=== PATIENT | male | born 1970 | race Caucasian/White ===

== ENCOUNTER 2018-06-27 03:28 | Emergency (ER) | payer OTHER ==
[2018-06-27] MEDS ORDERED: Sodium Chloride 0.9% 1000 ML 1,000 ML IV STA ×2 (03:54→04:38)
--- NOTE | 2018-06-27 04:03 | ERPHSYRPT ---
- History of Present Illness Time Seen by Provider: 06/27/18 03:58 Source: patient Exam Limitations: no limitations Patient Subjective Stated Complaint: pt states he has been dizzy all day, worse tonight. denies any pain. Triage Nursing Assessment: pt alert and oriented, answers questions approp. pt ambulatory with slow steady gait noted. respirations nonlabored with lungs cta. puplis equal and reactive. bilat upper and lower ext strength equal Physician History: 47-year-old white male with history of diabetes type 2, hypothyroidism, high blood pressure, arthritis, Patient arrives with complaint of feeling dizzy since yesterday he denies any fevers no nausea no vomiting no urinary symptoms he states his blood sugars have been running in the low 100s. Past medical history includes diabetes type 2, hypothyroidism, osteoarthritis. Past surgical history includes appendectomy, cholecystectomy, hernia repair, surgery on the left wrist. Timing/Duration: yesterday Severity: moderate Modifying Factors: Improves With: nothing Associated Symptoms: other (dizziness), No nausea, No vomiting, No abdominal pain, No shortness of breath, No heartburn, No diaphoresis, No cough, No chills , No chest pain, No fever, No headaches, No loss of appetite, No malaise, No rash, No syncope, No seizure, No weakness Allergies/Adverse Reactions: No Known Drug Allergies Allergy (Verified 06/27/18 03:47) Home Medications: Furosemide 40 mg [Lasix 40 MG] 40 mg PO DAILY 11/07/11 [History] Levothyroxine Sodium 112 Mcg [Synthroid 112 Mcg] 112 mcg PO DAILY 11/07/11 [History] Metformin HCl 1000 mg [Glucophage 1000 MG] 1,000 mg PO DAILY 11/07/11 [History] Glimepiride 4 mg PO DAILY 06/19/14 [History] Lisinopril [Zestril] 10 mg PO DAILY 06/19/14 [History] Potassium Chloride 10 Meq Tab* [Klor Con 10 MEQ] 10 meq PO DAILY 06/19/14 [ History] Pravastatin Sodium 20 mg PO HS 06/19/14 [History] Hx Tetanus, Diphtheria Vaccination/Date Given: Yes Hx Influenza Vaccination/Date Given: No Hx Pneumococcal Vaccination/Date Given: No Immunizations Up to Date: Yes - Review of Systems Constitutional: No Fever, No Chills Eyes: No Symptoms Ears, Nose, & Throat: No Symptoms Respiratory: No Cough, No Dyspnea Cardiac: No Chest Pain, No Edema, No Syncope Abdominal/Gastrointestinal: No Abdominal Pain, No Nausea, No Vomiting, No Diarrhea Genitourinary Symptoms: No Dysuria Musculoskeletal: No Back Pain, No Neck Pain Skin: No Rash Neurological: Dizziness, No Focal Weakness, No Gait Changes, No Headache, No Irritability, No Lethargy, No Paralysis, No Parasthesia, No Seizure, No Sensory Changes, No Speech Changes, No Tics, No Tremors, No Vertigo Psychological: No Symptoms Endocrine: No Symptoms All Other Systems: Reviewed and Negative - Past Medical History Pertinent Past Medical History: Yes Neurological History: No Pertinent History ENT History: No Pertinent History Cardiac History: Hypertension Respiratory History: No Pertinent History Endocrine Medical History: Diabetes Type II, Hypothyroidism Musculoskeletal History: Osteoarthritis GI Medical History: No Pertinent History History: No Pertinent History Psycho-Social History: No Pertinent History Male Reproductive Disorders: No Pertinent History - Past Surgical History Past Surgical History: Yes Neuro Surgical History: No Pertinent History Cardiac: No Pertinent History Respiratory: No Pertinent History Gastrointestinal: Appendectomy, Cholecystectomy, Hernia Repair Genitourinary: No Pertinent History Musculoskeletal: Orthopedic Surgery Male Surgical History: No Pertinent History Other Surgical History: L wrist - Social History Smoking Status: Current every day smoker How long have you smoked: 2yrs Exposure to second hand smoke: No Drug Use: none Patient Lives Alone: No - Nursing Vital Signs Nursing Vital Signs: Initial Vital Signs Pulse Rate 95 H 06/27/18 03:36 Respiratory Rate 18 06/27/18 03:36 Blood Pressure 149/90 06/27/18 03:36 O2 Sat by Pulse Oximetry 98 06/27/18 03:36 Pain Scale Pain Intensity 0 - Physical Exam General Appearance: no apparent distress, alert, obese Eye Exam: PERRL/EOMI, eyes nml inspection Ears, Nose, Throat Exam: normal ENT inspection, TMs normal, pharynx normal, moist mucous membranes Neck Exam: normal inspection, non-tender, supple, full range of motion Respiratory Exam: normal breath sounds, lungs clear, No respiratory distress Cardiovascular Exam: regular rate/rhythm, normal heart sounds, normal peripheral pulses, capillary refill <2 sec Gastrointestinal/Abdomen Exam: soft, normal bowel sounds, No tenderness, No mass Back Exam: normal inspection, normal range of motion, No CVA tenderness, No vertebral tenderness Extremity Exam: normal inspection, normal range of motion, pelvis stable Neurologic Exam: alert, oriented x 3, cooperative, lens finisher II-XII nml as tested, normal mood/affect, nml cerebellar function, nml station & gait, sensation nml, other (patient alert, oriented x3, cranial nerves II through XII intact,, normal finger to nose, no pronator drift, no facial droop, glass frame fitter equal 5 over 5 , speech normal, Ct Coma Scale 15, sensation intact all extremities,full range of motion all extremities.), No motor deficits, No sensory deficit, No disoriented, No confusion, No agitation, No uncooperative, No intoxicated appearance, No depressed mood/affect, No motor weakness, No facial droop, No slurred speech, No aphasia, No dysarthria, No abnormal gait, No abnormal cerebellar tests, No abnormal lens finisher II-XII, No EOM palsy Skin Exam: normal color, warm, dry, No rash SpO2 Interpretation: normal (98%) SpO2: 98 - Course Nursing assessment & vital signs reviewed: Yes EKG Interpreted by Me: RATE (95 bpm), Sinus Rhythm, NORMAL AXIS, Other (EKG: Sinus rhythm, 95 bpm, normal axis, no acute ST or T wave changes, normal EKG) - CT Exams Head CT Interpretation: Tele-radiologist Report (head CT: No acute intracranial findings) Ordered Tests: Active Orders 24 hr Category Date Time Status EKG-ER Only STAT Care 06/27/18 03:54 Active IV Insertion STAT Care 06/27/18 03:54 Active Orthostatic Vital Signs STAT Care 06/27/18 03:54 Active HEAD WITHOUT CONTRAST [CT] Stat Exams 06/27/18 03:54 Taken CBC W DIFF Stat Lab 06/27/18 04:20 Completed CMP Stat Lab 06/27/18 04:20 Completed UA W/RFX UR CULTURE Stat Lab 06/27/18 04:50 Completed Medication Summary Generic Name Dose Route Start Last Admin Trade Name Freq PRN Reason Stop Dose Admin Sodium Chloride 1,000 mls @ 999 mls/hr 06/27/18 04:38 Sodium Chloride 0.9% 1000 Ml IV 06/27/18 05:38 .Q1H1M STA Meclizine HCl 25 mg 06/27/18 05:17 Antivert 25 Mg PO 06/27/18 05:18 STAT ONE Discontinued Medications Generic Name Dose Route Start Last Admin Trade Name Niesha PRN Reason Stop Dose Admin Sodium Chloride 1,000 mls @ 999 mls/hr 06/27/18 03:54 06/27/18 04:36 Sodium Chloride 0.9% 1000 Ml IV 06/27/18 04:54 999 mls/hr .Q1H1M STA Administration Sodium Chloride Confirm 06/27/18 04:34 Sodium Chloride 0.9% 1000 Ml Administered 06/27/18 04:35 Dose 1,000 mls @ ud .ROUTE .STK-MED ONE Lab/Rad Data: Laboratory Result Diagrams 06/27/18 04:20 06/27/18 04:20 Laboratory Results 06/27/18 06/27/18 06/27/18 Range/Units 04:50 04:20 04:20 WBC 9.7 (4.0-10.5) K/mm3 RBC 5.10 (4.1-5.6) M/mm3 Hgb 14.2 (12.5-18.0) gm/dl Hct 43.9 (42-50) % MCV 86.1 (78-100) fl MCH 27.8 (26-32) pg MCHC 32.3 (32-36) g/dl RDW 14.9 H (11.5-14.0) % Plt Count 206 (150-450) K/mm3 MPV 10.4 H (6-9.5) fl Gran % 68.6 H (36.0-66.0) % Eos # (Auto) 0.18 (0-0.5) Absolute Lymphs (auto) 2.32 (1.0-4.6) Absolute Monos (auto) 0.50 (0.0-1.3) Lymphocytes % 24.0 (24.0-44.0) % Monocytes % 5.2 (0.0-12.0) % Eosinophils % 1.9 (0.00-5.0) % Basophils % 0.3 (0.0-0.4) % Absolute Granulocytes 6.64 (1.4-6.9) Basophils # 0.03 (0-0.4) Sodium 137 (137-145) mmol/L Potassium 4.1 (3.5-5.1) mmol/L Chloride 101 (98-107) mmol/L Carbon Dioxide 27 (22-30) mmol/L Anion Gap 12.6 (5-15) MEQ/L BUN 14 (9-20) mg/dL Creatinine 1.03 (0.66-1.25) mg/dL Estimated GFR > 60.0 ML/MIN Glucose 224 H (74-106) mg/dL Calcium 9.3 (8.4-10.2) mg/dL Total Bilirubin 0.30 (0.2-1.3) mg/dL AST 21 (17-59) U/L ALT 27 (0-50) U/L Alkaline Phosphatase 82 (38-126) U/L Serum Total Protein 7.3 (6.3-8.2) g/dL Albumin 3.9 (3.5-5.0) g/dL Urine Color STRAW (YELLOW) Urine Appearance CLEAR (CLEAR) Urine pH 6.0 (5-6) Ur Specific [place] 1.005 (1.005-1.025) Urine Protein NEGATIVE (Negative) Urine Ketones NEGATIVE (NEGATIVE) Urine Blood NEGATIVE (0-5) Brando/ul Urine Nitrite NEGATIVE (NEGATIVE) Urine Bilirubin NEGATIVE (NEGATIVE) Urine Urobilinogen NEGATIVE (0-1) mg/dL Ur Leukocyte Esterase NEGATIVE (NEGATIVE) Urine WBC (Auto) NONE (0-5) /HPF Urine RBC (Auto) NONE (0-2) /HPF U Epithel Cells (Auto) NONE (FEW) /HPF Urine Bacteria (Auto) NONE (NEGATIVE) /HPF Urine Mucus (Auto) SLIGHT (NEGATIVE) /HPF Urine Culture Reflexed NO (NO) Urine Glucose NEGATIVE (NEGATIVE) mg/dL - Progress Progress: improved Progress Note: 06/27/18 05:17 47-year-old white male with history of diabetes, hypothyroidism, arthritis, high blood pressure, Patient arrives with complaint of dizziness with moving around especially turning his head symptoms since yesterday, Patient with normal neurologic examination head CT is normal, Chemistry essentially normal with the exception of elevated glucose, patient is given 2 L of normal saline Will give patient Antivert 25 mg orally sent home with Antivert 25 mg orally 3 times a day as needed, Patient to follow-up with Dr. Perkins he is return for acute distress or for severe symptoms, , - Departure Time of Disposition: 05:18 Departure Disposition: Home Clinical Impression: Dizziness, Vertigo Condition: Fair Critical Care Time: No Referrals: SIENNA PERKINS MD [Primary Care Provider] - Instructions: Vertigo (a Type of Dizziness) (DC) Additional Instructions: Return home. Plenty of fluids. Antivert 25 mg orally 3 times a day as needed for dizziness #15. Follow-up with Dr. Perkins. Return for acute distress or for severe symptoms. Prescriptions: Meclizine HCl 25 mg [Antivert 25 mg] 25 mg PO TID PRN #15 tablet
[2018-06-27] MEDS ORDERED: Sodium Chloride 0.9% 1000 ML 1,000 ML ONE ×2 (04:34→05:28)
[2018-06-27 04:38] LABS: BASOPHIL % 0.3 % (0.0-0.4); Basophil (Absolute #) 0.03 (0-0.4); Eosinophil % 1.9 % (0.00-5.0); Eosinophil (Absolute #) 0.18 (0-0.5); Granulocyte Absolute (ANC) 6.64 (1.4-6.9); Granulocytes % 68.6 % (36.0-66.0); Hematocrit 43.9 % (42-50); Hemoglobin 14.2 gm/dl (12.5-18.0); Lymphocyte (Absolute #) 2.32 (1.0-4.6); Mean Cell Volume 86.1 fl (78-100); Mean Corpuscular Hemoglobin 27.8 pg (26-32); Mean Corpuscular Hgb Concent. 32.3 g/dl (32-36); Mean Platelet Volume 10.4 fl (6-9.5); Monocytes % 5.2 % (0.0-12.0); Platelet Count 206 K/mm3 (150-450); Red Cell Distribution Width 14.9 % (11.5-14.0); White Blood Count 9.7 K/mm3 (4.0-10.5)
[2018-06-27 04:49] LABS: ALBUMIN 3.9 g/dL (3.5-5.0); ALKALINE PHOSPHATASE 82 U/L (38-126); ANION GAP 12.6 MEQ/L (5-15); BLOOD UREA NITROGEN 14 mg/dL (9-20); CHLORIDE 101 mmol/L (98-107); Calcium 9.3 mg/dL (8.4-10.2); Carbon Dioxide 27 mmol/L (22-30); Creatinine 1 1.03 mg/dL (0.66-1.25); Glucose 224 mg/dL (74-106); Potassium 4.1 mmol/L (3.5-5.1); SGOT/AST 21 U/L (17-59); SGPT/ALT 27 U/L (0-50); SODIUM 137 mmol/L (137-145); Total Protein 7.3 g/dL (6.3-8.2)
[2018-06-27 05:01] LABS: Appearance CLEAR (CLEAR); Bilirubin NEGATIVE (NEGATIVE); Blood NEGATIVE Ery/ul (0-5); Glucose NEGATIVE (NEGATIVE); Ketones NEGATIVE (NEGATIVE); Leukocyte Esterase NEGATIVE (NEGATIVE); Mucus SLIGHT /HPF (NEGATIVE); Nitrite NEGATIVE (NEGATIVE); Protein,Urine Dip NEGATIVE (Negative); Specific Gravity 1.005 (1.005-1.025); Urobilinogen NEGATIVE mg/dL (0-1)
[2018-06-27] MEDS ORDERED: ANTIVERT 25 MG PO ONE (05:17)
[2018-06-27] MEDS ORDERED: ANTIVERT 25 MG ONE (05:28)
[2018-06-27 06:23] VITALS: BP 126/59; PULSE 80; O2SAT 97
--- NOTE | 2018-06-27 09:07 | XRAY ---
Indication: Dizziness. Multiple contiguous axial images obtained through the head without contrast. Comparison: None Normal appearing brain parenchyma, ventricles, and bony calvarium. Visualized paranasal sinuses and mastoid air cells are clear. Impression: Normal CT head without contrast exam. Comment: Preliminary interpretation was made by [facility]. No discrepancy. CT DI 68.65
== END 2018-06-27 06:23 | disposition home or self-care (01) ==
LOC: ED 03:28
DX: R42 Dizziness and giddiness (principal); E11.9 Type 2 diabetes mellitus without complications; E03.9 Hypothyroidism, unspecified; Z79.4 Long term (current) use of insulin; M19.90 Unspecified osteoarthritis, unspecified site
CPT/HCPCS: 36000; 36415; 70450; 80053; 81001; 85025; 93005; 96360; 96361; 99284; A9270-GY

== ENCOUNTER 2018-08-14 20:55 | Inpatient (IN) | payer OTHER ==
[2018-08-14] MEDS ORDERED: Sodium Chloride 0.9% 1000 ML 1,000 ML IV STA (21:30)
[2018-08-14] MEDS ORDERED: Zosyn 3.375GM/100 Ml D5W 3.375 GM/100 ML IVPB IV STA (21:30)
[2018-08-14] MEDS ORDERED: TYLENOL 325 MG PO STA (21:30)
[2018-08-14 22:03] LABS: BASOPHIL % 0.2 % (0.0-0.4); Basophil (Absolute #) 0.04 (0-0.4); Eosinophil % 0.2 % (0.00-5.0); Eosinophil (Absolute #) 0.04 (0-0.5); Granulocyte Absolute (ANC) 15.87 (1.4-6.9); Granulocytes % 83.2 % (36.0-66.0); Hemoglobin 13.7 gm/dl (12.5-18.0); Lymphocyte (Absolute #) 1.97 (1.0-4.6); Lymphocytes % 10.3 % (24.0-44.0); Mean Cell Volume 83.7 fl (78-100); Mean Corpuscular Hgb Concent. 33.4 g/dl (32-36); Mean Platelet Volume 10.4 fl (6-9.5); Monocyte (Absolute #) 1.17 (0.0-1.3); Monocytes % 6.1 % (0.0-12.0); Platelet Count 216 K/mm3 (150-450); White Blood Count 19.1 K/mm3 (4.0-10.5)
[2018-08-14 22:17] LABS: ALBUMIN 3.7 g/dL (3.5-5.0); ALKALINE PHOSPHATASE 96 U/L (38-126); ANION GAP 14.4 MEQ/L (5-15); BLOOD UREA NITROGEN 13 mg/dL (9-20); CHLORIDE 98 mmol/L (98-107); Carbon Dioxide 24 mmol/L (22-30); Creatinine 1 1.23 mg/dL (0.66-1.25); Glucose 192 mg/dL (74-106); Potassium 3.9 mmol/L (3.5-5.1); SGOT/AST 23 U/L (17-59); SGPT/ALT 28 U/L (0-50); SODIUM 132 mmol/L (137-145); Total Protein 7.3 g/dL (6.3-8.2)
[2018-08-14] MEDS ORDERED: Zosyn 3.375GM/100 Ml D5W 3.375 GM/100 ML IVPB IV ONE (22:19)
[2018-08-14] MEDS ORDERED: Sodium Chloride 0.9% 1000 ML 1,000 ML ONE (22:19)
[2018-08-14] MEDS ORDERED: TYLENOL 325 MG ONE (22:19)
[2018-08-14 22:34] LABS: Lactic Acid 2.4 (0.4-2.0)
[2018-08-14 23:02] LABS: Appearance CLEAR (CLEAR); Bilirubin NEGATIVE (NEGATIVE); Blood SMALL Ery/ul (0-5); Glucose NEGATIVE (NEGATIVE); Ketones TRACE (NEGATIVE); Leukocyte Esterase TRACE (NEGATIVE); Mucus SLIGHT /HPF (NEGATIVE); Nitrite NEGATIVE (NEGATIVE); Protein,Urine Dip NEGATIVE (Negative); Urobilinogen NEGATIVE mg/dL (0-1)
[2018-08-14] MEDS: Vancomycin 1GM/ Ns 250ML*** 250 ML IV SCH (23:04)
--- NOTE | 2018-08-14 23:36 | ERPHSYRPT ---
- History of Present Illness Source: patient Exam Limitations: no limitations Patient Subjective Stated Complaint: Pt states that she came to ER due to Pain and swelling in his groin fever and having chills. Pt states that last night that he felt that the swelling in his groin started to drain last night pt states that the drainage was bloody with some blood clots, pt states that he took some motrin to help with his discomfort @ 0600 this morning. Swelling noted in pts groin area drainage noted on pts right lower testical area, Pt has a Oral temp 101.8 Triage Nursing Assessment: Pt states that she came to ER due to Pain and swelling in his groin fever and having chills. Pt states that last night that he felt that the swelling in his groin started to drain last night pt states that the drainage was bloody with some blood clots, pt states that he took some motrin to help with his discomfort @ 0600 this morning. Swelling noted in pts groin area drainage noted on pts right lower testical area, Pt has a Oral temp 101.8 Physician History: Pt is a 47 y/o male with h/o DM II, that presented to the ED, as he had some erythema and wound in the posterior scrotal area. Today the area started oozing and the pain was severe, so he decided to come to the ER. Pt states, had F/C/S. He did not see his PCP, secondary to the area, where the wound is located, and not feeling comfortable about it. Pt denies dysuria, frequency or urgency. No SOB or cough. No N/V/D or abdominal pain. Timing/Duration: week(s) Activites at Onset: none Quality: burning, throbbing Onset Location: groin, scrotal Pain Radiation: none Severity of Pain-Max: moderate Severity of Pain-Current: moderate Modifying Factors: Improves With: analgesics Associated Symptoms: fever, chills, other (drainage from the wound) Prior abdominal problems: none Allergies/Adverse Reactions: No Known Drug Allergies Allergy (Verified 08/14/18 22:15) Home Medications: Furosemide 40 mg [Lasix 40 MG] 40 mg PO DAILY 11/07/11 [History] Levothyroxine Sodium 112 Mcg [Synthroid 112 Mcg] 112 mcg PO DAILY 11/07/11 [History] Metformin HCl 1000 mg [Glucophage 1000 MG] 1,000 mg PO DAILY 11/07/11 [History] Glimepiride 4 mg PO DAILY 06/19/14 [History] Lisinopril [Zestril] 10 mg PO DAILY 06/19/14 [History] Potassium Chloride 10 Meq Tab* [Klor Con 10 MEQ] 10 meq PO DAILY 06/19/14 [ History] Pravastatin Sodium 20 mg PO HS 06/19/14 [History] Empagliflozin [Jardiance] 10 mg PO DAILY 08/14/18 [History] Hx Tetanus, Diphtheria Vaccination/Date Given: Yes Hx Influenza Vaccination/Date Given: No Hx Pneumococcal Vaccination/Date Given: No - Past Medical History Pertinent Past Medical History: Yes Neurological History: No Pertinent History ENT History: No Pertinent History Cardiac History: Hypertension Respiratory History: No Pertinent History Endocrine Medical History: Diabetes Type II, Hypothyroidism Musculoskeletal History: Osteoarthritis GI Medical History: No Pertinent History History: No Pertinent History Psycho-Social History: No Pertinent History Male Reproductive Disorders: No Pertinent History - Past Surgical History Past Surgical History: Yes Neuro Surgical History: No Pertinent History Cardiac: No Pertinent History Respiratory: No Pertinent History Gastrointestinal: Appendectomy, Cholecystectomy, Hernia Repair Genitourinary: No Pertinent History Musculoskeletal: Orthopedic Surgery Male Surgical History: No Pertinent History Other Surgical History: L wrist - Social History Smoking Status: Current every day smoker How long have you smoked: 2yrs Exposure to second hand smoke: No Drug Use: none Patient Lives Alone: No - Review of Systems Constitutional: Fever, Chills Eyes: No Symptoms Ears, Nose, & Throat: No Symptoms Respiratory: No Cough, No Dyspnea Cardiac: No Chest Pain, No Edema, No Syncope Abdominal/Gastrointestinal: No Abdominal Pain, No Nausea, No Vomiting, No Diarrhea Genitourinary Symptoms: Other (skin wound in the R scrotal area, near the thigh , posteriorly), No Dysuria Musculoskeletal: No Back Pain, No Neck Pain Neurological: No Dizziness, No Focal Weakness, No Sensory Changes - Nursing Vital Signs Nursing Vital Signs: Initial Vital Signs Temperature 101.8 F 08/14/18 21:12 Respiratory Rate 18 08/14/18 21:12 Blood Pressure 115/76 08/14/18 21:12 O2 Sat by Pulse Oximetry 98 08/14/18 21:12 Pain Scale Pain Intensity 10 - Physical Exam General Appearance: moderate distress (secondary to pain) Eye Exam: PERRL/EOMI Ears, Nose, Throat Exam: pharynx normal, moist mucous membranes Neck Exam: normal inspection, supple Respiratory Exam: normal breath sounds, lungs clear Cardiovascular Exam: tachycardia, No edema Gastrointestinal/Abdomen Exam: soft, No tenderness Male Genital Exam: normal genitalia, erythema, scrotum tenderness (R), scrotal swellling (and draining from wound), uncircumcised Extremity Exam: normal inspection, normal range of motion, No pedal edema Neurologic Exam: alert, oriented x 3, cooperative, sensation nml, No motor deficits Skin Exam: normal color, warm, dry, No rash SpO2: 97 - Course Nursing assessment & vital signs reviewed: Yes Ordered Tests: Active Orders 24 hr Category Date Time Status IV Insertion STAT Care 08/14/18 21:30 Active BLOOD CULTURE Stat Lab 08/14/18 22:47 Received CBC W DIFF Stat Lab 08/14/18 21:30 Completed CMP Stat Lab 08/14/18 21:30 Completed Lactic Acid Stat Lab 08/14/18 21:58 Results Urinalysis with Microscopy Stat Lab 08/14/18 22:51 Completed Medication Summary Generic Name Dose Route Start Last Admin Trade Name Freq PRN Reason Stop Dose Admin Vancomycin HCl 250 mls @ 250 mls/hr 08/14/18 21:30 08/14/18 23:04 Vancomycin 1gm/ Ns 250ml IV 08/14/18 23:29 250 mls/hr Q1H ALONDRA Administration Discontinued Medications Generic Name Dose Route Start Last Admin Trade Name Freq PRN Reason Stop Dose Admin Acetaminophen 975 mg 08/14/18 21:30 08/14/18 22:35 Tylenol 325 Mg PO 08/14/18 21:31 975 mg STAT STA Administration Acetaminophen Confirm 08/14/18 22:19 Tylenol 325 Mg Administered 08/14/18 22:20 Dose 975 mg .ROUTE .STK-MED ONE Sodium Chloride 1,000 mls @ 999 mls/hr 08/14/18 21:30 08/14/18 22:26 Sodium Chloride 0.9% 1000 Ml IV 08/14/18 22:30 999 mls/hr .Q1H1M STA Administration Piperacillin Sod/Tazobactam Sod 3.375 gm in 100 mls @ 200 mls/hr 08/14/18 21: 30 08/14/18 22:25 Zosyn 3.375gm/100 Ml D5w IV 08/14/18 21:59 200 mls/hr STAT STA Administration Sodium Chloride Confirm 08/14/18 22:19 Sodium Chloride 0.9% 1000 Ml Administered 08/14/18 22:20 Dose 1,000 mls @ ud .ROUTE .STK-MED ONE Piperacillin Sod/Tazobactam Sod Confirm 08/14/18 22:19 Zosyn 3.375gm/100 Ml D5w Administered 08/14/18 22:20 Dose 3.375 gm in 100 mls @ ud IV .STK-MED ONE Lab/Rad Data: Laboratory Result Diagrams 08/14/18 21:30 08/14/18 21:30 Laboratory Results 08/14/18 08/14/18 08/14/18 Range/Units 22:51 21:58 21:30 WBC (4.0-10.5) K/mm3 RBC (4.1-5.6) M/mm3 Hgb (12.5-18.0) gm/dl Hct (42-50) % MCV (78-100) fl MCH (26-32) pg MCHC (32-36) g/dl RDW (11.5-14.0) % Plt Count (150-450) K/mm3 MPV (6-9.5) fl Gran % (36.0-66.0) % Eos # (Auto) (0-0.5) Absolute Lymphs (auto) (1.0-4.6) Absolute Monos (auto) (0.0-1.3) Lymphocytes % (24.0-44.0) % Monocytes % (0.0-12.0) % Eosinophils % (0.00-5.0) % Basophils % (0.0-0.4) % Absolute Granulocytes (1.4-6.9) Basophils # (0-0.4) Sodium 132 L (137-145) mmol/L Potassium 3.9 (3.5-5.1) mmol/L Chloride 98 (98-107) mmol/L Carbon Dioxide 24 (22-30) mmol/L Anion Gap 14.4 (5-15) MEQ/L BUN 13 (9-20) mg/dL Creatinine 1.23 (0.66-1.25) mg/dL Estimated GFR > 60.0 ML/MIN Glucose 192 H (74-106) mg/dL Lactic Acid 2.4 H (0.4-2.0) Calcium 9.0 (8.4-10.2) mg/dL Total Bilirubin 1.30 (0.2-1.3) mg/dL AST 23 (17-59) U/L ALT 28 (0-50) U/L Alkaline Phosphatase 96 (38-126) U/L Serum Total Protein 7.3 (6.3-8.2) g/dL Albumin 3.7 (3.5-5.0) g/dL Urine Color YELLOW (YELLOW) Urine Appearance CLEAR (CLEAR) Urine pH 6.0 (5-6) Ur Specific [place] 1.010 (1.005-1.025) Urine Protein NEGATIVE (Negative) Urine Ketones TRACE (NEGATIVE) Urine Blood SMALL (0-5) Brando/ul Urine Nitrite NEGATIVE (NEGATIVE) Urine Bilirubin NEGATIVE (NEGATIVE) Urine Urobilinogen NEGATIVE (0-1) mg/dL Ur Leukocyte Esterase TRACE (NEGATIVE) Urine WBC (Auto) 6-10 (0-5) /HPF Urine RBC (Auto) NONE (0-2) /HPF U Epithel Cells (Auto) NONE (FEW) /HPF Urine Bacteria (Auto) NONE (NEGATIVE) /HPF Urine Mucus (Auto) SLIGHT (NEGATIVE) /HPF Urine Glucose NEGATIVE (NEGATIVE) mg/dL 08/14/18 Range/Units 21:30 WBC 19.1 H (4.0-10.5) K/mm3 RBC 4.90 (4.1-5.6) M/mm3 Hgb 13.7 (12.5-18.0) gm/dl Hct 41.0 L (42-50) % MCV 83.7 (78-100) fl MCH 28.0 (26-32) pg MCHC 33.4 (32-36) g/dl RDW 14.0 (11.5-14.0) % Plt Count 216 (150-450) K/mm3 MPV 10.4 H (6-9.5) fl Gran % 83.2 H (36.0-66.0) % Eos # (Auto) 0.04 (0-0.5) Absolute Lymphs (auto) 1.97 (1.0-4.6) Absolute Monos (auto) 1.17 (0.0-1.3) Lymphocytes % 10.3 L (24.0-44.0) % Monocytes % 6.1 (0.0-12.0) % Eosinophils % 0.2 (0.00-5.0) % Basophils % 0.2 (0.0-0.4) % Absolute Granulocytes 15.87 H (1.4-6.9) Basophils # 0.04 (0-0.4) Sodium (137-145) mmol/L Potassium (3.5-5.1) mmol/L Chloride (98-107) mmol/L Carbon Dioxide (22-30) mmol/L Anion Gap (5-15) MEQ/L BUN (9-20) mg/dL Creatinine (0.66-1.25) mg/dL Estimated GFR ML/MIN Glucose (74-106) mg/dL Lactic Acid (0.4-2.0) Calcium (8.4-10.2) mg/dL Total Bilirubin (0.2-1.3) mg/dL AST (17-59) U/L ALT (0-50) U/L Alkaline Phosphatase (38-126) U/L Serum Total Protein (6.3-8.2) g/dL Albumin (3.5-5.0) g/dL Urine Color (YELLOW) Urine Appearance (CLEAR) Urine pH (5-6) Ur Specific [place] (1.005-1.025) Urine Protein (Negative) Urine Ketones (NEGATIVE) Urine Blood (0-5) Brando/ul Urine Nitrite (NEGATIVE) Urine Bilirubin (NEGATIVE) Urine Urobilinogen (0-1) mg/dL Ur Leukocyte Esterase (NEGATIVE) Urine WBC (Auto) (0-5) /HPF Urine RBC (Auto) (0-2) /HPF U Epithel Cells (Auto) (FEW) /HPF Urine Bacteria (Auto) (NEGATIVE) /HPF Urine Mucus (Auto) (NEGATIVE) /HPF Urine Glucose (NEGATIVE) mg/dL - Progress Progress: unchanged Progress Note: Pt is a 47 y/o male with wound that is draining from posterior scrotum on the R. The area is erythematous, painful and draining. Pt had the wound about two weeks, and did not seek any medical therapy prior to today. Pt will have blood cultures and wound culture taken. Will start Vancomycin and ZZosyn IV. Labs are going to be taken. Pt might need exploratory I&D in the OR. 08/14/18 23:38 08/15/18 00:16 Pt had labs done, and had WBC at over 19. His lactate is 2.4, and he has some RUCHI. Pt had IVF and ABX. Dr Perkins accepted for admission Discussed with .: Harrison Will see patient in: hospital (full admit) Counseled pt/family regarding: lab results, diagnosis - Departure Time of Disposition: 00:16 Departure Disposition: In-patient Admission Clinical Impression: Open wound of scrotum Condition: Fair Critical Care Time: No Referrals: SIENNA PERKINS MD [Primary Care Provider] -
[2018-08-15] MEDS ORDERED: TYLENOL 325 MG PO PRN (00:20)
[2018-08-15] MEDS ORDERED: Zofran 4 MG/2 ML VIAL IV PRN (00:20)
[2018-08-15] MEDS ORDERED: Sodium Chloride 0.9% 1000 ML 1,000 ML IV SCH (00:30)
[2018-08-15] MEDS: Vancomycin 1GM/ Ns 250ML*** 250 ML IV SCH (00:39)
[2018-08-15 05:46] LABS: BASOPHIL % 0.2 % (0.0-0.4); Basophil (Absolute #) 0.03 (0-0.4); Eosinophil % 0.4 % (0.00-5.0); Eosinophil (Absolute #) 0.06 (0-0.5); Granulocytes % 85.2 % (36.0-66.0); Hematocrit 38.7 % (42-50); Hemoglobin 12.7 gm/dl (12.5-18.0); Lymphocyte (Absolute #) 1.31 (1.0-4.6); Mean Cell Volume 84.7 fl (78-100); Mean Corpuscular Hemoglobin 27.8 pg (26-32); Mean Corpuscular Hgb Concent. 32.8 g/dl (32-36); Mean Platelet Volume 10.4 fl (6-9.5); Monocyte (Absolute #) 0.75 (0.0-1.3); Monocytes % 5.2 % (0.0-12.0); Platelet Count 196 K/mm3 (150-450); Red Blood Count 4.57 M/mm3 (4.1-5.6); White Blood Count 14.6 K/mm3 (4.0-10.5)
[2018-08-15] MEDS: Zosyn 3.375GM/100 Ml D5W 3.375 GM/100 ML IVPB IV SCH ×3 (06:02→17:09)
[2018-08-15 06:09] LABS: ALKALINE PHOSPHATASE 81 U/L (38-126); ANION GAP 11.9 MEQ/L (5-15); BLOOD UREA NITROGEN 12 mg/dL (9-20); CHLORIDE 102 mmol/L (98-107); Calcium 8.4 mg/dL (8.4-10.2); Carbon Dioxide 25 mmol/L (22-30); Creatinine 1 1.02 mg/dL (0.66-1.25); Glucose 191 mg/dL (74-106); Potassium 3.9 mmol/L (3.5-5.1); SGOT/AST 20 U/L (17-59); SGPT/ALT 22 U/L (0-50); SODIUM 134 mmol/L (137-145); Total Protein 5.9 g/dL (6.3-8.2)
--- NOTE | 2018-08-15 08:13 | PCM.HP ---
History of Present Illness - Chief Complaint Chief Complaint: scrotal abscess History of Present Illness: Mr.TOMLIN ANDINO is a 47 year old male who is morbidly obese and a type 2 diabetic. He developed some pain and swelling in the testicular region 4 days ago, progressed and worsened and has become more painful since then so he came to the ER for evaluation. He denies fever but has had some chills, the area is draining a large amount at this time. - Review of Systems Constitutional: Chills Respiratory: No Cough, No Short Of Breath Cardiac: No Chest Pain, No Edema, No Syncope Abdominal/Gastrointestinal: No Abdominal Pain, No Nausea, No Vomiting, No Diarrhea Skin: Cellulitis All Other Systems: Reviewed and Negative Medications & Allergies Home Medications: Home Medication List Furosemide 40 mg [Lasix 40 MG] 40 mg PO DAILY 11/07/11 [History Confirmed 08/14/18] Levothyroxine Sodium 112 Mcg [Synthroid 112 Mcg] 112 mcg PO DAILY 11/07/11 [History Confirmed 08/14/18] Metformin HCl 1000 mg [Glucophage 1000 MG] 1,000 mg PO DAILY 11/07/11 [History Confirmed 08/14/18] Glimepiride 4 mg PO DAILY 06/19/14 [History Confirmed 08/14/18] Lisinopril [Zestril] 10 mg PO DAILY 06/19/14 [History Confirmed 08/14/18] Potassium Chloride 10 Meq Tab* [Klor Con 10 MEQ] 10 meq PO DAILY 06/19/14 [ History Confirmed 08/14/18] Pravastatin Sodium 20 mg PO HS 06/19/14 [History Confirmed 08/14/18] Empagliflozin [Jardiance] 10 mg PO DAILY 08/14/18 [History Confirmed 08/14/18] Allergies/Adverse Reactions: Allergies Allergy/AdvReac Type Severity Reaction Status Date / Time No Known Drug Allergies Allergy Verified 08/14/18 22:15 - Past Medical History Past Medical History: Yes Neurological History: No Pertinent History ENT History: No Pertinent History Cardiac History: Hypertension Respiratory History: No Pertinent History Endocrine Medical History: Diabetes Type II, Hypothyroidism Musculoskelatal History: Osteoarthritis GI Medical History: No Pertinent History History: No Pertinent History Pyscho-Social History: No Pertinent History Male Reproductive Disorders: No Pertinent History - Past Surgical History Past Surgical History: Yes Neuro Surgical History: No Pertinent History Cardiac History: No Pertinent History Respiratory Surgery: No Pertinent History GI Surgical History: Appendectomy, Cholecystectomy, Hernia Repair Genitourinary Surgical Hx: No Pertinent History Musculskeletal Surgical Hx: Orthopedic Surgery Male Surgical History: No Pertinent History Other Surgical History: L wrist - Social History Smoking Status: Current every day smoker How long have you smoked: 5 Exposure to second hand smoke: Yes Alcohol: None Drug Use: none - Physical Exam Vital Signs: Vital Signs - 24 hr Temp Pulse Resp BP Pulse Ox 08/15/18 06:21 99.1 F 08/15/18 04:00 100.1 F 08/15/18 03:57 100.3 F 08/15/18 01:22 99.9 F 103 H 18 117/67 97 08/15/18 00:56 99.1 F 102 H 16 92/68 97 08/15/18 00:19 97 08/15/18 00:18 94 H 18 91/70 96 08/14/18 22:53 106 H 20 106/77 97 08/14/18 22:40 106 H 20 106/77 97 08/14/18 21:50 107 H 20 128/75 98 08/14/18 21:12 101.8 F 18 115/76 98 General Appearance: obese Neurologic Exam: alert, oriented x 3 Respiratory Exam: normal breath sounds, lungs clear, No respiratory distress Cardiovascular Exam: regular rate/rhythm, normal heart sounds, normal peripheral pulses Gastrointestinal/Abdomen Exam: soft, normal bowel sounds, No tenderness, No mass Male Genitalia Exam: other (large area of induration, erythema and purulent drainage. significant scrotal edema) Results - Labs Lab/Micro Results: Lab Results-Last 24 Hours 08/14/18 08/14/18 08/14/18 Range/Units 21:30 21:30 21:58 WBC 19.1 H (4.0-10.5) K/mm3 RBC 4.90 (4.1-5.6) M/mm3 Hgb 13.7 (12.5-18.0) gm/dl Hct 41.0 L (42-50) % MCV 83.7 (78-100) fl MCH 28.0 (26-32) pg MCHC 33.4 (32-36) g/dl RDW 14.0 (11.5-14.0) % Plt Count 216 (150-450) K/mm3 MPV 10.4 H (6-9.5) fl Gran % 83.2 H (36.0-66.0) % Eos # (Auto) 0.04 (0-0.5) Absolute Lymphs (auto) 1.97 (1.0-4.6) Absolute Monos (auto) 1.17 (0.0-1.3) Lymphocytes % 10.3 L (24.0-44.0) % Monocytes % 6.1 (0.0-12.0) % Eosinophils % 0.2 (0.00-5.0) % Basophils % 0.2 (0.0-0.4) % Absolute Granulocytes 15.87 H (1.4-6.9) Basophils # 0.04 (0-0.4) Sodium 132 L (137-145) mmol/L Potassium 3.9 (3.5-5.1) mmol/L Chloride 98 (98-107) mmol/L Carbon Dioxide 24 (22-30) mmol/L Anion Gap 14.4 (5-15) MEQ/L BUN 13 (9-20) mg/dL Creatinine 1.23 (0.66-1.25) mg/dL Estimated GFR > 60.0 ML/MIN Glucose 192 H (74-106) mg/dL Lactic Acid 2.4 H (0.4-2.0) Calcium 9.0 (8.4-10.2) mg/dL Total Bilirubin 1.30 (0.2-1.3) mg/dL AST 23 (17-59) U/L ALT 28 (0-50) U/L Alkaline Phosphatase 96 (38-126) U/L Serum Total Protein 7.3 (6.3-8.2) g/dL Albumin 3.7 (3.5-5.0) g/dL Prealbumin (17.6-36.0) mg/dL Urine Color (YELLOW) Urine Appearance (CLEAR) Urine pH (5-6) Ur Specific Grundy (1.005-1.025) Urine Protein (Negative) Urine Ketones (NEGATIVE) Urine Blood (0-5) Brando/ul Urine Nitrite (NEGATIVE) Urine Bilirubin (NEGATIVE) Urine Urobilinogen (0-1) mg/dL Ur Leukocyte Esterase (NEGATIVE) Urine WBC (Auto) (0-5) /HPF Urine RBC (Auto) (0-2) /HPF U Epithel Cells (Auto) (FEW) /HPF Urine Bacteria (Auto) (NEGATIVE) /HPF Urine Mucus (Auto) (NEGATIVE) /HPF Urine Glucose (NEGATIVE) mg/dL 08/14/18 08/15/18 08/15/18 Range/Units 22:51 01:20 05:25 WBC 14.6 H (4.0-10.5) K/mm3 RBC 4.57 (4.1-5.6) M/mm3 Hgb 12.7 (12.5-18.0) gm/dl Hct 38.7 L (42-50) % MCV 84.7 (78-100) fl MCH 27.8 (26-32) pg MCHC 32.8 (32-36) g/dl RDW 14.0 (11.5-14.0) % Plt Count 196 (150-450) K/mm3 MPV 10.4 H (6-9.5) fl Gran % 85.2 H (36.0-66.0) % Eos # (Auto) 0.06 (0-0.5) Absolute Lymphs (auto) 1.31 (1.0-4.6) Absolute Monos (auto) 0.75 (0.0-1.3) Lymphocytes % 9.0 L (24.0-44.0) % Monocytes % 5.2 (0.0-12.0) % Eosinophils % 0.4 (0.00-5.0) % Basophils % 0.2 (0.0-0.4) % Absolute Granulocytes 12.40 H (1.4-6.9) Basophils # 0.03 (0-0.4) Sodium (137-145) mmol/L Potassium (3.5-5.1) mmol/L Chloride (98-107) mmol/L Carbon Dioxide (22-30) mmol/L Anion Gap (5-15) MEQ/L BUN (9-20) mg/dL Creatinine (0.66-1.25) mg/dL Estimated GFR ML/MIN Glucose (74-106) mg/dL Lactic Acid 1.6 (0.4-2.0) Calcium (8.4-10.2) mg/dL Total Bilirubin (0.2-1.3) mg/dL AST (17-59) U/L ALT (0-50) U/L Alkaline Phosphatase (38-126) U/L Serum Total Protein (6.3-8.2) g/dL Albumin (3.5-5.0) g/dL Prealbumin (17.6-36.0) mg/dL Urine Color YELLOW (YELLOW) Urine Appearance CLEAR (CLEAR) Urine pH 6.0 (5-6) Ur Specific Grundy 1.010 (1.005-1.025) Urine Protein NEGATIVE (Negative) Urine Ketones TRACE (NEGATIVE) Urine Blood SMALL (0-5) Brando/ul Urine Nitrite NEGATIVE (NEGATIVE) Urine Bilirubin NEGATIVE (NEGATIVE) Urine Urobilinogen NEGATIVE (0-1) mg/dL Ur Leukocyte Esterase TRACE (NEGATIVE) Urine WBC (Auto) 6-10 (0-5) /HPF Urine RBC (Auto) NONE (0-2) /HPF U Epithel Cells (Auto) NONE (FEW) /HPF Urine Bacteria (Auto) NONE (NEGATIVE) /HPF Urine Mucus (Auto) SLIGHT (NEGATIVE) /HPF Urine Glucose NEGATIVE (NEGATIVE) mg/dL 08/15/18 08/15/18 Range/Units 05:25 05:25 WBC (4.0-10.5) K/mm3 RBC (4.1-5.6) M/mm3 Hgb (12.5-18.0) gm/dl Hct (42-50) % MCV (78-100) fl MCH (26-32) pg MCHC (32-36) g/dl RDW (11.5-14.0) % Plt Count (150-450) K/mm3 MPV (6-9.5) fl Gran % (36.0-66.0) % Eos # (Auto) (0-0.5) Absolute Lymphs (auto) (1.0-4.6) Absolute Monos (auto) (0.0-1.3) Lymphocytes % (24.0-44.0) % Monocytes % (0.0-12.0) % Eosinophils % (0.00-5.0) % Basophils % (0.0-0.4) % Absolute Granulocytes (1.4-6.9) Basophils # (0-0.4) Sodium 134 L (137-145) mmol/L Potassium 3.9 (3.5-5.1) mmol/L Chloride 102 (98-107) mmol/L Carbon Dioxide 25 (22-30) mmol/L Anion Gap 11.9 (5-15) MEQ/L BUN 12 (9-20) mg/dL Creatinine 1.02 (0.66-1.25) mg/dL Estimated GFR > 60.0 ML/MIN Glucose 191 H (74-106) mg/dL Lactic Acid (0.4-2.0) Calcium 8.4 (8.4-10.2) mg/dL Total Bilirubin 1.30 (0.2-1.3) mg/dL AST 20 (17-59) U/L ALT 22 (0-50) U/L Alkaline Phosphatase 81 (38-126) U/L Serum Total Protein 5.9 L (6.3-8.2) g/dL Albumin 3.0 L (3.5-5.0) g/dL Prealbumin 10.15 L (17.6-36.0) mg/dL Urine Color (YELLOW) Urine Appearance (CLEAR) Urine pH (5-6) Ur Specific Grundy (1.005-1.025) Urine Protein (Negative) Urine Ketones (NEGATIVE) Urine Blood (0-5) Brando/ul Urine Nitrite (NEGATIVE) Urine Bilirubin (NEGATIVE) Urine Urobilinogen (0-1) mg/dL Ur Leukocyte Esterase (NEGATIVE) Urine WBC (Auto) (0-5) /HPF Urine RBC (Auto) (0-2) /HPF U Epithel Cells (Auto) (FEW) /HPF Urine Bacteria (Auto) (NEGATIVE) /HPF Urine Mucus (Auto) (NEGATIVE) /HPF Urine Glucose (NEGATIVE) mg/dL Assessment/Plan (1) Abscess, perineum Current Visit: Yes Status: Acute Assessment & Plan: continue vanc and zosyn at this time, surgery consult pending. wound culture was collected in ER. recommend warm compress, will keep npo at this time pending consult. Code(s): L02.215 - CUTANEOUS ABSCESS OF PERINEUM (2) Cellulitis Current Visit: No Status: Acute Code(s): L03.90 - CELLULITIS, UNSPECIFIED (3) Diabetes mellitus Current Visit: No Status: Acute Code(s): E11.9 - TYPE 2 DIABETES MELLITUS WITHOUT COMPLICATIONS (4) Morbid obesity Current Visit: Yes Status: Acute Code(s): E66.01 - MORBID (SEVERE) OBESITY DUE TO EXCESS CALORIES
[2018-08-15] MEDS: NovoLOG Insulin SQ PRN ×2 (08:33→22:50)
[2018-08-15] MEDS: VANCOCIN 1 GM VIAL*** 2 GM in Sodium Chloride 0.9% 500 ML 500 ML IV SCH ×2 (09:10→22:51)
[2018-08-15] MEDS ORDERED: PHENYLEPHRINE HCL IV ONE (09:39)
[2018-08-15] MEDS ORDERED: Zofran 4 MG/2 ML VIAL IV ONE (09:39)
[2018-08-15] MEDS ORDERED: BRIDION 200MG/2ML IV ONE (09:39)
[2018-08-15] MEDS ORDERED: DIPRIVAN 200 MG/20 ML IV ONE (09:39)
[2018-08-15] MEDS ORDERED: Zemuron 100 MG/10 ML IV ONE (09:39)
[2018-08-15] MEDS ORDERED: Quelicin Fliptop 200 MG/10 ML IV ONE (09:39)
[2018-08-15] MEDS ORDERED: Xylocaine-Mpf 2% 5 Ml Vial IJ ONE (09:39)
[2018-08-15] MEDS ORDERED: Lasix 40 MG PO SCH (10:00)
[2018-08-15] MEDS ORDERED: Klor Con 10 MEQ PO SCH (10:00)
[2018-08-15] MEDS: Zestril 10 MG PO SCH (10:47)
[2018-08-15] MEDS: SYNTHROID 112 MCG PO SCH (10:48)
--- NOTE | 2018-08-15 12:41 | XRAY ---
Indication: Abscess. Right scrotal pain. Two-dimensional testicular sonogram performed. Comparison: None Both testicles homogeneous in echogenicity with normal color perfusion. Right testicle measures 5.2 x 2.6 x 3.2 cm and the left measures 4.5 x 2.8 x 3.3 cm. Right epididymis demonstrates a few cysts, largest 6 mm. Small sub-centimeter right scrotolith. Left epididymis unremarkable. No large hydrocele. Right scrotum demonstrates marked lateral wall thickening with hyperemic color Doppler flow. Scrotum also demonstrates large incompletely visualized hyperechogenic lobular mass with color Doppler flow. The mass is difficult to differentiate from scrotal wall versus scrotal sac mass. No focal fluid collection. Impression: 1. Right scrotal wall thickening with hyperemic color Doppler flow presumed inflammatory/infectious such as cellulitis. 2. Also incompletely visualized large scrotal hyperechogenic lobular mass with color flow. Difficult to differentiate scrotal wall versus scrotal sac lipomatous mass. 2. Incidental right scrotolith and right epididymal cysts.
[2018-08-15] MEDS ORDERED: Lactated Ringers 1,000 ML IV SCH ×2 (15:00→21:30)
[2018-08-15] MEDS ORDERED: Versed 2 MG/2 ML Injection ONE (16:04)
[2018-08-15] MEDS ORDERED: SUBLIMAZE 100 MCG/2 ML ONE ×2 (16:06→20:15)
[2018-08-15] MEDS ORDERED: Sodium Chloride 0.9% 1000 ML 1,000 ML ONE (18:27)
[2018-08-15] MEDS ORDERED: Dakin's Soln FULL STRENGTH ONE (19:00)
[2018-08-15] MEDS ORDERED: CLINDAMYCIN-D5W 900 MG/50 ML*** 900 MG/50 ML BAG IV ONE (19:17)
[2018-08-15] MEDS ORDERED: Lactated Ringers 1,000 ML IV ONE (21:18)
[2018-08-15] MEDS: Lactated Ringers 1,000 ML IV SCH (22:47)
[2018-08-15] MEDS: MORPHINE SULFATE 4 MG INJ IV PRN (22:50)
[2018-08-16] MEDS: Zosyn 3.375GM/100 Ml D5W 3.375 GM/100 ML IVPB IV SCH ×4 (01:01→17:18)
[2018-08-16] MEDS ORDERED: ENOXAPARIN SODIUM SQ ONE (03:00)
[2018-08-16 06:05] LABS: BASOPHIL % 0.1 % (0.0-0.4); Basophil (Absolute #) 0.02 (0-0.4); Eosinophil % 0.1 % (0.00-5.0); Eosinophil (Absolute #) 0.01 (0-0.5); Granulocyte Absolute (ANC) 12.39 (1.4-6.9); Granulocytes % 86.3 % (36.0-66.0); Hematocrit 36.1 % (42-50); Hemoglobin 11.7 gm/dl (12.5-18.0); Lymphocyte (Absolute #) 1.11 (1.0-4.6); Lymphocytes % 7.7 % (24.0-44.0); Mean Cell Volume 86.2 fl (78-100); Mean Corpuscular Hemoglobin 27.9 pg (26-32); Mean Corpuscular Hgb Concent. 32.4 g/dl (32-36); Mean Platelet Volume 10.7 fl (6-9.5); Monocyte (Absolute #) 0.83 (0.0-1.3); Monocytes % 5.8 % (0.0-12.0); Platelet Count 197 K/mm3 (150-450); Red Blood Count 4.19 M/mm3 (4.1-5.6); Red Cell Distribution Width 14.1 % (11.5-14.0); White Blood Count 14.4 K/mm3 (4.0-10.5)
[2018-08-16 06:25] LABS: ANION GAP 10.4 MEQ/L (5-15); BLOOD UREA NITROGEN 11 mg/dL (9-20); CHLORIDE 104 mmol/L (98-107); Calcium 8.2 mg/dL (8.4-10.2); Carbon Dioxide 24 mmol/L (22-30); Creatinine 1 1.03 mg/dL (0.66-1.25); Glucose 252 mg/dL (74-106); Potassium 4.4 mmol/L (3.5-5.1); SODIUM 135 mmol/L (137-145)
[2018-08-16] MEDS ORDERED: NORCO 5/325 MG PO PRN (07:40)
[2018-08-16] MEDS ORDERED: FEVERALL 650 MG RC PRN (07:41)
[2018-08-16] MEDS: MORPHINE SULFATE 4 MG INJ IV PRN ×2 (09:25→22:33)
[2018-08-16] MEDS ORDERED: TROUGH DRUG LEVELS IJ ONE (09:30)
[2018-08-16] MEDS: Lactated Ringers 1,000 ML IV SCH (09:32)
[2018-08-16] MEDS: NovoLOG Insulin SQ PRN ×3 (09:41→22:16)
[2018-08-16] MEDS: Zestril 10 MG PO SCH (09:48)
[2018-08-16] MEDS: VANCOCIN 1 GM VIAL*** 2 GM in Sodium Chloride 0.9% 500 ML 500 ML IV SCH ×2 (09:48→22:16)
[2018-08-16] MEDS: SYNTHROID 112 MCG PO SCH (09:49)
[2018-08-16] MEDS: AMARYL 4 MG PO SCH (10:11)
--- NOTE | 2018-08-16 13:52 | PCM.NOTE ---
Date and Time: 08/16/18 1349 Subjective Assessment: Pt had an I&D of the area this morning by surgery, Dr. Maddison Brice, thank you. Pt is not having pain until he stands up or had a dressing change. Tolerating po well. Objective Exam General Appearance: no apparent distress, alert, obese Neurologic Exam: oriented x 3, cooperative Skin Exam: normal color, warm, dry, other (I did not examine the wound as it was examined by surgery and packed.), No rash Eye Exam: eyes nml inspection Ears, Nose, Throat Exam: moist mucous membranes Respiratory Exam: normal breath sounds, lungs clear, No crackles/rales, No rhonchi, No wheezing Cardiovascular Exam: regular rate/rhythm, normal heart sounds, No murmur Extremity Exam: normal inspection, No pedal edema, No swelling OBJECTIVE DATA Vital Signs: Vital Signs - 24 hr Temp Pulse Resp BP Pulse Ox 08/16/18 08:00 98.6 F 81 21 98/55 98 08/16/18 04:00 98.6 F 85 20 116/66 96 08/16/18 00:00 99.1 F 96 H 18 121/71 97 08/15/18 20:00 99.5 F 105 H 24 140/67 93 L 08/15/18 17:57 99.3 F 89 22 153/58 96 08/15/18 16:00 99.3 F 89 22 153/58 96 08/15/18 15:04 100.6 F 104 H 22 114/68 93 L 08/15/18 14:00 100.6 F 104 H 22 114/68 93 L Pain Assessment - Last Documented Pain Intensity 6 Pain Scale Used 0-10 Pain Scale Intake and Output: Intake & Output 08/14/18 08/15/18 08/16/18 08/17/18 11:59 11:59 11:59 11:59 Intake Total 673 5291 Output Total 2280 Balance 673 1671 Weight 183.5 kg 183.5 kg Lab Results: Accuchecks Date 08/16/18 Date 08/16/18 Date 08/15/18 Time 12:15 Time 07:30 Time 16:30 Accucheck Value: 234 Accucheck Value: 258 Accucheck Value: 234 Accucheck Value: 210 Lab Results-Last 24 Hours 08/16/18 08/16/18 08/16/18 Range/Units 05:50 05:50 05:55 WBC 14.4 H (4.0-10.5) K/mm3 RBC 4.19 (4.1-5.6) M/mm3 Hgb 11.7 L (12.5-18.0) gm/dl Hct 36.1 L (42-50) % MCV 86.2 (78-100) fl MCH 27.9 (26-32) pg MCHC 32.4 (32-36) g/dl RDW 14.1 H (11.5-14.0) % Plt Count 197 (150-450) K/mm3 MPV 10.7 H (6-9.5) fl Gran % 86.3 H (36.0-66.0) % Eos # (Auto) 0.01 (0-0.5) Absolute Lymphs (auto) 1.11 (1.0-4.6) Absolute Monos (auto) 0.83 (0.0-1.3) Lymphocytes % 7.7 L (24.0-44.0) % Monocytes % 5.8 (0.0-12.0) % Eosinophils % 0.1 (0.00-5.0) % Basophils % 0.1 (0.0-0.4) % Absolute Granulocytes 12.39 H (1.4-6.9) Basophils # 0.02 (0-0.4) Sodium 135 L (137-145) mmol/L Potassium 4.4 (3.5-5.1) mmol/L Chloride 104 (98-107) mmol/L Carbon Dioxide 24 (22-30) mmol/L Anion Gap 10.4 (5-15) MEQ/L BUN 11 (9-20) mg/dL Creatinine 1.03 (0.66-1.25) mg/dL Estimated GFR > 60.0 ML/MIN Glucose 252 H (74-106) mg/dL Hemoglobin A1c 7.24 H (4.5-6.0) % Calcium 8.2 L (8.4-10.2) mg/dL Vancomycin Trough (10-20) ug/mL 08/16/18 Range/Units 09:16 WBC (4.0-10.5) K/mm3 RBC (4.1-5.6) M/mm3 Hgb (12.5-18.0) gm/dl Hct (42-50) % MCV (78-100) fl MCH (26-32) pg MCHC (32-36) g/dl RDW (11.5-14.0) % Plt Count (150-450) K/mm3 MPV (6-9.5) fl Gran % (36.0-66.0) % Eos # (Auto) (0-0.5) Absolute Lymphs (auto) (1.0-4.6) Absolute Monos (auto) (0.0-1.3) Lymphocytes % (24.0-44.0) % Monocytes % (0.0-12.0) % Eosinophils % (0.00-5.0) % Basophils % (0.0-0.4) % Absolute Granulocytes (1.4-6.9) Basophils # (0-0.4) Sodium (137-145) mmol/L Potassium (3.5-5.1) mmol/L Chloride (98-107) mmol/L Carbon Dioxide (22-30) mmol/L Anion Gap (5-15) MEQ/L BUN (9-20) mg/dL Creatinine (0.66-1.25) mg/dL Estimated GFR ML/MIN Glucose (74-106) mg/dL Hemoglobin A1c (4.5-6.0) % Calcium (8.4-10.2) mg/dL Vancomycin Trough 13.91 (10-20) ug/mL Radiology Exams: Radiology Procedures Category Date Time Status TESTICLE [US] Routine Exams 08/15/18 11:00 Completed Assessment/Plan (1) Abscess, perineum Current Visit: Yes Status: Acute Assessment & Plan: S/p I&D. On day #2 of vancomycin and zosyn. The plan per surgery is to get a wound vac when available. Code(s): L02.215 - CUTANEOUS ABSCESS OF PERINEUM (2) Diabetes mellitus Current Visit: Yes Status: Chronic Qualifiers: Diabetes mellitus type: type 2 Diabetes mellitus manager terminal insulin use: without manager terminal use Diabetes mellitus complication status: without complication Qualified Code(s): E11.9 - Type 2 diabetes mellitus without complications Assessment & Plan: Surgery would like BS better controlled - typically at home he has much better control than here. Higher due to his meds being held and likely d/t concurrent illness. He can resume the Jardiance and the glimeperide. No metformin in the event he might need some imaging during this stay (with contrast). Since he is tolerating po well will start him on 5 units of lantus daily. Code(s): E11.9 - TYPE 2 DIABETES MELLITUS WITHOUT COMPLICATIONS (3) Morbid obesity Current Visit: Yes Status: Chronic Code(s): E66.01 - MORBID (SEVERE) OBESITY DUE TO EXCESS CALORIES
[2018-08-16] MEDS ORDERED: Lantus Insulin SQ SCH (22:00)
[2018-08-17] MEDS: Lactated Ringers 1,000 ML IV SCH ×2 (00:36→08:55)
[2018-08-17] MEDS: Zosyn 3.375GM/100 Ml D5W 3.375 GM/100 ML IVPB IV SCH ×4 (00:36→17:43)
[2018-08-17] MEDS: ENOXAPARIN SODIUM SQ SCH (05:30)
[2018-08-17] MEDS: AMARYL 4 MG PO SCH (08:18)
[2018-08-17] MEDS: NovoLOG Insulin SQ PRN ×4 (08:19→21:54)
[2018-08-17] MEDS: VANCOCIN 1 GM VIAL*** 2 GM in Sodium Chloride 0.9% 500 ML 500 ML IV SCH ×2 (09:59→21:53)
[2018-08-17] MEDS: SYNTHROID 112 MCG PO SCH (10:08)
[2018-08-17] MEDS: Zestril 10 MG PO SCH (10:08)
--- NOTE | 2018-08-17 13:05 | PCM.NOTE ---
Date and Time: 08/17/18 1301 Subjective Assessment: Pt is feeling better. Up in chair, just ate lunch. Some pain with sitting. Dr. Shaun Brice looked at the wound earlier and told pt it looked good. Pt had BM yesterday. Blood sugars 149, 166, 170 since yesterday. - Review of Systems Constitutional: No Fever Abdominal/Gastrointestinal: No Vomiting Objective Exam General Appearance: no apparent distress, obese Neurologic Exam: alert, oriented x 3, cooperative Skin Exam: normal color, warm, dry, other (perineum not examined), No rash Respiratory Exam: normal breath sounds, lungs clear, No crackles/rales, No rhonchi, No wheezing Cardiovascular Exam: regular rate/rhythm, normal heart sounds, No murmur Gastrointestinal/Abdomen Exam: soft, normal bowel sounds, No tenderness Extremity Exam: normal inspection Back Exam: normal inspection, No rash OBJECTIVE DATA Vital Signs: Vital Signs - 24 hr Temp Pulse Resp BP Pulse Ox 08/17/18 07:27 98.3 F 81 20 123/87 97 08/17/18 05:04 98.3 F 79 16 110/55 98 08/17/18 00:00 98.9 F 82 20 111/58 93 L 08/16/18 20:00 98.3 F 87 20 112/73 97 08/16/18 16:00 98.5 F 78 21 133/82 97 Pain Assessment - Last Documented Pain Intensity 0 Pain Scale Used 0-10 Pain Scale Intake and Output: Intake & Output 08/15/18 08/16/18 08/17/18 08/18/18 11:59 11:59 11:59 11:59 Intake Total 673 5291 7783 Output Total 2140 2050 Balance 673 7435 6909 Weight 183.5 kg 183.5 kg Lab Results: Accuchecks Date 08/17/18 Date 08/16/18 Date 08/16/18 Time 08:19 Time 22:00 Time 16:30 Accucheck Value: 170 Accucheck Value: 166 Accucheck Value: 149 Assessment/Plan (1) Abscess, perineum Current Visit: Yes Status: Acute Assessment & Plan: POD #2 s/p I&D per surgery, thank you. Wound culture preliminary result, normal skin ania. Code(s): L02.215 - CUTANEOUS ABSCESS OF PERINEUM (2) Diabetes mellitus Current Visit: Yes Status: Chronic Qualifiers: Diabetes mellitus type: type 2 Diabetes mellitus care home insulin use: without care home use Diabetes mellitus complication status: without complication Qualified Code(s): E11.9 - Type 2 diabetes mellitus without complications Assessment & Plan: Family just brought in his Jardiance. Initially I was going to increase Lantus to 10units qhs, but will leave at 5 units qhs since he is restarting the jardiance. Will continue to hold the metformin for now. Code(s): E11.9 - TYPE 2 DIABETES MELLITUS WITHOUT COMPLICATIONS (3) Morbid obesity Current Visit: Yes Status: Chronic Code(s): E66.01 - MORBID (SEVERE) OBESITY DUE TO EXCESS CALORIES
[2018-08-17] MEDS: Sodium Chloride 0.9% 10 ML FLUSH Syringe IV SCH ×2 (14:30→21:54)
[2018-08-17] MEDS: MORPHINE SULFATE 4 MG INJ IV PRN ×2 (15:36→21:53)
[2018-08-17] MEDS ORDERED: JARDIANCE 10 MG PO SCH ×2 (18:30→18:50)
[2018-08-17] MEDS ORDERED: JARDIANCE 10 MG PO ONE (18:50)
[2018-08-17] MEDS ORDERED: JARDIANCE 25 MG PO ONE (19:00)
[2018-08-17] MEDS: Lantus Insulin SQ SCH (21:54)
[2018-08-17] MEDS ORDERED: Lantus Insulin SQ SCH (22:00)
[2018-08-18] MEDS: Zosyn 3.375GM/100 Ml D5W 3.375 GM/100 ML IVPB IV SCH ×4 (00:03→17:52)
[2018-08-18] MEDS: Sodium Chloride 0.9% 10 ML FLUSH Syringe IV SCH ×3 (05:41→22:02)
[2018-08-18] MEDS: ENOXAPARIN SODIUM SQ SCH (05:41)
[2018-08-18 06:22] LABS: BASOPHIL % 0.4 % (0.0-0.4); Basophil (Absolute #) 0.03 (0-0.4); Eosinophil % 1.8 % (0.00-5.0); Eosinophil (Absolute #) 0.13 (0-0.5); Granulocyte Absolute (ANC) 4.37 (1.4-6.9); Granulocytes % 59.7 % (36.0-66.0); Hematocrit 36.1 % (42-50); Hemoglobin 11.7 gm/dl (12.5-18.0); Lymphocyte (Absolute #) 1.98 (1.0-4.6); Mean Cell Volume 87.6 fl (78-100); Mean Corpuscular Hgb Concent. 32.4 g/dl (32-36); Monocyte (Absolute #) 0.81 (0.0-1.3); Monocytes % 11.1 % (0.0-12.0); Platelet Count 240 K/mm3 (150-450); Red Blood Count 4.12 M/mm3 (4.1-5.6); Red Cell Distribution Width 14.4 % (11.5-14.0); White Blood Count 7.3 K/mm3 (4.0-10.5)
[2018-08-18 06:30] LABS: Mean Corpuscular Hemoglobin 28.3 pg (26-32)
[2018-08-18 06:38] LABS: ANION GAP 9.3 MEQ/L (5-15); Calcium 8.5 mg/dL (8.4-10.2); Creatinine 1 1.43 mg/dL (0.66-1.25)
[2018-08-18] MEDS: AMARYL 4 MG PO SCH (08:30)
--- NOTE | 2018-08-18 08:40 | PCM.NOTE ---
Date and Time: 08/18/18 0836 Subjective Assessment: patient has no pain, has some itching in the area. wbc normalized today Objective Exam General Appearance: no apparent distress, alert, obese Skin Exam: normal color, warm, dry Respiratory Exam: normal breath sounds, lungs clear, No respiratory distress Cardiovascular Exam: regular rate/rhythm, normal heart sounds Gastrointestinal/Abdomen Exam: soft, No tenderness, No mass Male Genitalia Exam: other (large open area with no fluctuance, scant drainage. redness dramatically improved) OBJECTIVE DATA Vital Signs: Vital Signs - 24 hr Temp Pulse Resp BP Pulse Ox 08/18/18 04:06 98.9 F 76 18 114/65 94 L 08/18/18 00:36 98.8 F 78 18 132/62 95 08/17/18 21:00 98.6 F 81 18 110/68 96 08/17/18 16:50 98.5 F 72 20 116/73 97 08/17/18 13:00 98.3 F 75 20 117/68 95 Pain Assessment - Last Documented Pain Intensity 0 Pain Scale Used 0-10 Pain Scale Intake and Output: Intake & Output 08/15/18 08/16/18 08/17/18 08/18/18 11:59 11:59 11:59 11:59 Intake Total 673 5291 7783 6237 Output Total 2600 7700 4800 Balance 673 3507 8138 1437 Weight 183.5 kg 183.5 kg Lab Results: Accuchecks Date 08/17/18 Date 08/17/18 Date 08/17/18 Time 22:00 Time 16:49 Time 12:17 Accucheck Value: 182 Accucheck Value: 187 Accucheck Value: 166 Lab Results-Last 24 Hours 08/18/18 08/18/18 Range/Units 05:27 05:27 WBC 7.3 (4.0-10.5) K/mm3 RBC 4.12 (4.1-5.6) M/mm3 Hgb 11.7 L (12.5-18.0) gm/dl Hct 36.1 L (42-50) % MCV 87.6 (78-100) fl MCH 28.3 (26-32) pg MCHC 32.4 (32-36) g/dl RDW 14.4 H (11.5-14.0) % Plt Count 240 (150-450) K/mm3 MPV 11.0 H (6-9.5) fl Gran % 59.7 (36.0-66.0) % Eos # (Auto) 0.13 (0-0.5) Absolute Lymphs (auto) 1.98 (1.0-4.6) Absolute Monos (auto) 0.81 (0.0-1.3) Lymphocytes % 27.0 (24.0-44.0) % Monocytes % 11.1 (0.0-12.0) % Eosinophils % 1.8 (0.00-5.0) % Basophils % 0.4 (0.0-0.4) % Absolute Granulocytes 4.37 (1.4-6.9) Basophils # 0.03 (0-0.4) Sodium 140 (137-145) mmol/L Potassium 4.0 (3.5-5.1) mmol/L Chloride 106 (98-107) mmol/L Carbon Dioxide 29 (22-30) mmol/L Anion Gap 9.3 (5-15) MEQ/L BUN 11 (9-20) mg/dL Creatinine 1.43 H (0.66-1.25) mg/dL Estimated GFR 56.8 ML/MIN Glucose 119 H (74-106) mg/dL Calcium 8.5 (8.4-10.2) mg/dL Radiology Exams: Radiology Procedures Category Date Time Status PICC LINE PLACEMENT Routine Exams 08/18/18 Ordered Assessment/Plan (1) Abscess, perineum Current Visit: Yes Status: Acute Assessment & Plan: currently on vanc and zosyn, likely polymicrobial due to diabetes. substantially improved since I and D. awaiting culture, prelim from ER showed skin organisms. surgical specimen appears delayed for some reason Code(s): L02.215 - CUTANEOUS ABSCESS OF PERINEUM (2) Cellulitis Current Visit: Yes Status: Acute Code(s): L03.90 - CELLULITIS, UNSPECIFIED (3) Diabetes mellitus Current Visit: Yes Status: Chronic Qualifiers: Diabetes mellitus type: type 2 Diabetes mellitus grid inspector insulin use: without grid inspector use Diabetes mellitus complication status: without complication Qualified Code(s): E11.9 - Type 2 diabetes mellitus without complications Code(s): E11.9 - TYPE 2 DIABETES MELLITUS WITHOUT COMPLICATIONS (4) Morbid obesity Current Visit: Yes Status: Chronic Assessment & Plan: reasonably controlled at this time, no change Code(s): E66.01 - MORBID (SEVERE) OBESITY DUE TO EXCESS CALORIES
[2018-08-18 09:14] LABS: INR 1.11 (0.8-3.0); PROTIME 12.9 SECONDS (8.83-12.87)
[2018-08-18 09:17] LABS: PTT 28.9 SECONDS (24.1-36.1)
[2018-08-18] MEDS ORDERED: JARDIANCE 10 MG PO SCH (10:00)
[2018-08-18] MEDS ORDERED: JARDIANCE 25 MG PO SCH (10:00)
[2018-08-18] MEDS: SYNTHROID 112 MCG PO SCH (10:09)
[2018-08-18] MEDS: Zestril 10 MG PO SCH (10:09)
[2018-08-18] MEDS: PATIENT OWN MEDICATION PO SCH (10:09)
--- NOTE | 2018-08-18 10:36 | CONS ---
CONSULT DATE: 08/15/2018 4489 REASON FOR CONSULT: Scrotal pain. HISTORY: This patient presents with right scrotal pain that started earlier in the week that came to a head and has been draining some. A foul odorous drainage and has become more swollen and more painful. The patient has not had anything like this happen before. He has been having dome fever. He is diabetic but not on insulin. He denies any nausea, vomiting, chest pain, shortness of breath. PAST MEDICAL HISTORY: Diabetes, hypertension, hypothyroidism. PAST SURGICAL HISTORY: Appendectomy. Cholecystectomy. Hernia. Wrist surgery. MEDICATIONS: Medications reviewed, see MAR including Metformin. ALLERGIES: NKDA. SOCIAL HISTORY: Positive for tobacco. No alcohol. FAMILY HISTORY: Noncontributory. LAB DATA AND TESTS: Blood work showed elevated white blood cell count. PHYSICAL EXAMINATION: GENERAL: No acute distress. HEENT: Sclera nonicteric. Extraocular movements intact. NECK: Supple. No JVD. CHEST: Nonlabored breathing. ABDOMEN: Soft, obese, nondistended, nontender. EXTREMITIES: No peripheral edema. : Massively indurated and tender right scrotum going up towards the mons and down towards the peritoneum with an open drainage area in the lower part of the right scrotum with a very foul smell to it that is clinically consistent with Igor's gangrene. 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 PLAN: Urology is not available at this hospital for scrotal debridement. Discussed in depth with the patient the severity of Igor's gangrene and that it can be a life threatening infection. The patient is aware that it may require multiple surgical debridement, may require loss of his testicle and will likely take a very long time for wound healing and possible need for skin grafting down the line. The patient is aware of risks and benefits of surgery and would like to proceed with surgery immediately. We will plan for immediate aggressive surgical debridement.
[2018-08-18] MEDS: VANCOCIN 1 GM VIAL*** 2 GM in Sodium Chloride 0.9% 500 ML 500 ML IV SCH ×2 (10:54→22:02)
--- NOTE | 2018-08-18 11:23 | OP ---
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 PROCEDURE: Extensive incision and debridement of scrotum and perineum with necrotic skin subcutaneous tissue and fascia for necrotizing fasciitis. SURGEON: Eliseo Brice M.D. ANESTHESIA: General. SPECIMEN: Necrotic perineum for culture and pathology. ESTIMATED BLOOD LOSS: 100 cc. COMPLICATIONS: None. FINDINGS: Extensive necrotizing fasciitis of the right scrotum and perineum measuring 22 x 13 x 4 cm after excision. PATIENT PRESENTATION: This patient presents with worsening right testicle pain. On physical examination he was found to have an exam consistent with Igor's gangrene and taken immediately to the operating room after discussing risks and benefits of surgery. DESCRIPTION OF PROCEDURE: The patient was brought to the operating room placed under general anesthesia, placed in lithotomy position. Prepped and draped in sterile fashion. There is a drainage tract at the inferior aspect of the right scrotum this was incised with scalpel heading cephalad. The tissue is very indurated and quite vascular. Incision was made with electrocautery. The wound was deepened and necrotic tissue was found deep to the skin above a pocket of hair that tracked along the fascia. This was followed cranially and the overlying skin incised up towards the mons. Eventually the superior extent of the necrosis was found and viable tissue was found superiorly. Next, the skin was excised medially over the scrotum heading off the right hemiscrotum down to the tunica albuginea this was then taken down towards the perineum and small amount of perineal skin was removed as this was primarily the right hemiscrotum that was involved. Initial debridement was performed of some additional necrotic tissue. Electrocautery was used for hemostasis as well as 3-0 Vicryl tie and several clips on the bleeding vessel. Eventually all the necrotic tissue was removed and we were left with a wound measuring 22 cm craniocaudad, 13 cm in width and 4 cm in depth. The wound was copiously irrigated. The wound was fairly hemostatic. The wound was then packed with Kerlix soaked in Dakin's solution. The patient was recovered and taken to PACU in stable condition. Of note, a Jolley catheter was attempted to be placed at the beginning of the case before starting debridement and it could not be placed at the prostate. A 16 and then 14 Cook Islander Coude catheter were also attempted and could not cross the prostate and Jolley catheter placement was aborted at that time.
--- NOTE | 2018-08-18 13:23 | XRAY ---
Indication: Ultrasound guidance for PICC line placement. Initial sonographic imaging of the right upper extremity was performed for localization of patent veins. A patent cephalic vein identified above the elbow. Ultrasound guidance was then used for PICC line insertion. Full PICC line insertion is reported separately.
--- NOTE | 2018-08-18 13:25 | XRAY ---
Indication: Long-term IV access and therapy for groin infection. Informed consent obtained. Patient was placed on the fluoroscopic table in a supine position. Initial sonographic imaging of the right upper extremity was performed for localization of patent veins. The right upper extremity was then prepped and draped in sterile fashion. Tourniquet applied. 1% lidocaine plain used for local anesthesia. Using ultrasound guidance and a micropuncture needle, a cephalic vein above the elbow was successfully percutaneously cannulized. A floppy tip 0.018 guidewire inserted. Tourniquet released. Needle was exchanged for a 5 [place] dilator peel-away sheath catheter. Ultimately a 5 [place] double-lumen PICC line was inserted over a longer 0.018 guidewire with the tip positioned in the distal SVC using fluoroscopic guidance. Guidewire removed. Both ports flushed with heparinized saline. Catheter was secured. Postoperative instructions and orders given. Patient discharged in good condition. Impression: Technically successful right upper extremity PICC line placement using ultrasound and fluoroscopic guidance. No immediate complications. Approximately 1 cc blood loss. Approximately 0.2 minute of fluoroscopy used. Catheter length is 41 cm.
[2018-08-18] MEDS: MORPHINE SULFATE 4 MG INJ IV PRN (14:39)
[2018-08-18] MEDS: NovoLOG Insulin SQ PRN ×2 (16:50→22:02)
[2018-08-18] MEDS: Lantus Insulin SQ SCH (22:01)
[2018-08-19] MEDS: Zosyn 3.375GM/100 Ml D5W 3.375 GM/100 ML IVPB IV SCH ×5 (00:25→23:44)
[2018-08-19] MEDS: ENOXAPARIN SODIUM SQ SCH (05:22)
[2018-08-19] MEDS: Sodium Chloride 0.9% 10 ML FLUSH Syringe IV SCH ×4 (05:22→22:52)
[2018-08-19 06:06] LABS: BASOPHIL % 0.3 % (0.0-0.4); Basophil (Absolute #) 0.03 (0-0.4); Eosinophil % 1.9 % (0.00-5.0); Eosinophil (Absolute #) 0.18 (0-0.5); Granulocyte Absolute (ANC) 6.23 (1.4-6.9); Granulocytes % 65.8 % (36.0-66.0); Hematocrit 36.5 % (42-50); Hemoglobin 11.6 gm/dl (12.5-18.0); Lymphocyte (Absolute #) 2.11 (1.0-4.6); Lymphocytes % 22.3 % (24.0-44.0); Mean Cell Volume 87.7 fl (78-100); Mean Corpuscular Hgb Concent. 31.8 g/dl (32-36); Mean Platelet Volume 10.2 fl (6-9.5); Monocyte (Absolute #) 0.92 (0.0-1.3); Monocytes % 9.7 % (0.0-12.0); Platelet Count 255 K/mm3 (150-450); Red Blood Count 4.16 M/mm3 (4.1-5.6); Red Cell Distribution Width 14.2 % (11.5-14.0); White Blood Count 9.5 K/mm3 (4.0-10.5)
[2018-08-19 06:18] LABS: Mean Corpuscular Hemoglobin 27.8 pg (26-32)
[2018-08-19 06:24] LABS: ANION GAP 9.3 MEQ/L (5-15); Calcium 8.6 mg/dL (8.4-10.2); Creatinine 1 1.51 mg/dL (0.66-1.25); Potassium 4.4 mmol/L (3.5-5.1)
[2018-08-19] MEDS: AMARYL 4 MG PO SCH (07:43)
[2018-08-19] MEDS ORDERED: SUBLIMAZE 100 MCG/2 ML IV ONE (08:48)
--- NOTE | 2018-08-19 09:02 | PCM.NOTE ---
Date and Time: 08/19/18 0858 Subjective Assessment: Pt received morphine prior to wound dressing change this morning. Tolerating po well. States he has some soreness in the perineum after sitting for a while. Did not recieve pain meds other than the morphine. - Review of Systems Constitutional: No Fever Abdominal/Gastrointestinal: No Vomiting Objective Exam General Appearance: no apparent distress, obese Neurologic Exam: alert, cooperative Skin Exam: normal color, warm, dry, other (wound not examined; Pictures noted in paper chart from PT, thank you.), No rash Ears, Nose, Throat Exam: moist mucous membranes Respiratory Exam: normal breath sounds, lungs clear, No crackles/rales, No rhonchi, No wheezing Cardiovascular Exam: regular rate/rhythm, normal heart sounds, No murmur Gastrointestinal/Abdomen Exam: soft, normal bowel sounds, No tenderness Extremity Exam: normal inspection, No pedal edema, No swelling OBJECTIVE DATA Vital Signs: Vital Signs - 24 hr Temp Pulse Resp BP Pulse Ox 08/19/18 07:29 99.0 F 90 18 117/71 98 08/19/18 05:00 98.8 F 82 20 134/73 95 08/19/18 04:49 98.8 F 82 20 134/73 95 08/19/18 01:00 98 F 76 18 143/72 94 L 08/18/18 20:37 98.9 F 76 20 119/79 95 08/18/18 16:36 98.4 F 79 18 117/66 97 08/18/18 13:00 98.3 F 76 18 129/78 98 08/18/18 09:00 98.6 F 82 18 125/78 98 Pain Assessment - Last Documented Pain Intensity 0 Pain Scale Used 0-10 Pain Scale Intake and Output: Intake & Output 08/16/18 08/17/18 08/18/18 08/19/18 11:59 11:59 11:59 11:59 Intake Total 6345 8157 4752 2176 Output Total 5340 4824 0255 6487 Balance 2692 4534 1167 1050 Weight 183.5 kg 183.5 kg Lab Results: Accuchecks Date 08/18/18 Time 22:00 Accucheck Value: 94 Accucheck Value: 193 Accucheck Value: 233 Accucheck Value: 126 Lab Results-Last 24 Hours 03/08/19/18 08/19/18 Range/Units 05:27 05:50 05:50 WBC 9.5 (4.0-10.5) K/mm3 RBC 4.16 (4.1-5.6) M/mm3 Hgb 11.6 L (12.5-18.0) gm/dl Hct 36.5 L (42-50) % MCV 87.7 (78-100) fl MCH 27.8 (26-32) pg MCHC 31.8 L (32-36) g/dl RDW 14.2 H (11.5-14.0) % Plt Count 255 (150-450) K/mm3 MPV 10.2 H (6-9.5) fl Gran % 65.8 (36.0-66.0) % Eos # (Auto) 0.18 (0-0.5) Absolute Lymphs (auto) 2.11 (1.0-4.6) Absolute Monos (auto) 0.92 (0.0-1.3) Lymphocytes % 22.3 L (24.0-44.0) % Monocytes % 9.7 (0.0-12.0) % Eosinophils % 1.9 (0.00-5.0) % Basophils % 0.3 (0.0-0.4) % Absolute Granulocytes 6.23 (1.4-6.9) Basophils # 0.03 (0-0.4) PT 12.9 H (8.83-12.87) SECONDS INR 1.11 (0.8-3.0) APTT 28.9 (24.1-36.1) SECONDS Sodium 138 (137-145) mmol/L Potassium 4.4 (3.5-5.1) mmol/L Chloride 102 (98-107) mmol/L Carbon Dioxide 31 H (22-30) mmol/L Anion Gap 9.3 (5-15) MEQ/L BUN 12 (9-20) mg/dL Creatinine 1.51 H (0.66-1.25) mg/dL Estimated GFR 53.4 ML/MIN Glucose 120 H (74-106) mg/dL Calcium 8.6 (8.4-10.2) mg/dL Radiology Exams: Radiology Procedures Category Date Time Status GUIDE FOR VASCULAR ACCESS [US] Routine Exams 08/18/18 09:11 Completed PICC LINE PLACEMENT Routine Exams 08/18/18 13:13 Completed Assessment/Plan (1) Fourniers gangrene Current Visit: Yes Status: Acute Assessment & Plan: per surgery, s/p debridement. On re-exam postoperatively they have not seen any necrotizing tissue. Pictures in chart indicate healthy wound bed. Day #5 of vancomycin and zosyn. Code(s): N49.3 - ADIS GANGRENE (2) Diabetes mellitus Current Visit: Yes Status: Chronic Qualifiers: Diabetes mellitus type: type 2 Diabetes mellitus shelter insulin use: without intermediate frame tender use Diabetes mellitus complication status: without complication Qualified Code(s): E11.9 - Type 2 diabetes mellitus without complications Assessment & Plan: In the past 3 d his BS have been in the 100s, down to 94, aside from an isolated BS of 233. Code(s): E11.9 - TYPE 2 DIABETES MELLITUS WITHOUT COMPLICATIONS (3) Morbid obesity Current Visit: Yes Status: Chronic Code(s): E66.01 - MORBID (SEVERE) OBESITY DUE TO EXCESS CALORIES
[2018-08-19] MEDS: PATIENT OWN MEDICATION PO SCH (09:45)
[2018-08-19] MEDS: SYNTHROID 112 MCG PO SCH (09:45)
[2018-08-19] MEDS: Zestril 10 MG PO SCH (09:45)
[2018-08-19] MEDS: MORPHINE SULFATE 4 MG INJ IV PRN (10:51)
[2018-08-19] MEDS: Lantus Insulin SQ SCH (21:06)
[2018-08-19] MEDS ORDERED: TROUGH DRUG LEVELS IJ ONE (21:30)
[2018-08-19] MEDS ORDERED: VANCOCIN 1 GM VIAL*** 1.25 GM in Sodium Chloride 0.9% 250 ML 250 ML IV SCH (22:00)
[2018-08-20] MEDS: Sodium Chloride 0.9% 10 ML FLUSH Syringe IV SCH ×3 (06:13→21:29)
[2018-08-20] MEDS: ENOXAPARIN SODIUM SQ SCH (06:13)
[2018-08-20] MEDS: Zosyn 3.375GM/100 Ml D5W 3.375 GM/100 ML IVPB IV SCH (06:13)
[2018-08-20 08:19] LABS: Creatinine 1 1.44 mg/dL (0.66-1.25)
[2018-08-20] MEDS: AMARYL 4 MG PO SCH (08:22)
--- NOTE | 2018-08-20 09:07 | PCM.NOTE ---
Date and Time: 08/20/18900 Subjective Assessment: patient doing well, is up moving. requiring frequent dressing changes. has not had fever and wbc has normalized. he does not feel he will be able to care for the wound himself upon questioning. Objective Exam General Appearance: no apparent distress, obese Neurologic Exam: alert, oriented x 3 Respiratory Exam: normal breath sounds, lungs clear, No respiratory distress Cardiovascular Exam: regular rate/rhythm, normal heart sounds Gastrointestinal/Abdomen Exam: soft, No tenderness, No mass Extremity Exam: other (dressing clean and dry, erythema and induration improving. swelling to testicular area improving.) OBJECTIVE DATA Vital Signs: Vital Signs - 24 hr Temp Pulse Resp BP Pulse Ox 08/20/18 04:00 98.7 F 77 16 141/74 97 08/20/18 00:10 98.6 F 89 20 138/70 96 08/19/18 21:00 98.5 F 81 20 122/65 97 08/19/18 15:45 98.3 F 81 18 128/73 96 08/19/18 13:00 98.3 F 79 18 125/73 96 Pain Assessment - Last Documented Pain Intensity 0 Pain Scale Used 0-10 Pain Scale Intake and Output: Intake & Output 08/17/18 08/18/18 08/19/18 08/20/18 11:59 11:59 11:59 11:59 Intake Total 7783 6917 2751 2205 Output Total 2050 5750 3225 1000 Balance 5733 1167 -474 1205 Weight 183.5 kg Lab Results: Accuchecks Date 08/19/18 Time 22:00 Accucheck Value: 131 Accucheck Value: 93 Accucheck Value: 127 Lab Results-Last 24 Hours 08/19/18 08/19/18 08/20/18 Range/Units 09:00 23:07 06:30 Creatinine 1.44 H (0.66-1.25) mg/dL Estimated GFR 56.4 ML/MIN Vancomycin Trough 24.82 H 33.68 H (10-20) ug/mL 08/20/18 Range/Units 07:30 Creatinine (0.66-1.25) mg/dL Estimated GFR ML/MIN Vancomycin Trough < 5.00 L (10-20) ug/mL Radiology Exams: Radiology Procedures Category Date Time Status GUIDE FOR VASCULAR ACCESS [US] Routine Exams 08/18/18 09:11 Completed PICC LINE PLACEMENT Routine Exams 08/18/18 13:13 Completed Multi-Disciplinary Progress Notes: Multi-Disciplinary Progress Notes 08/20/18 07:17 Pharmacy Note by Prem Marina Vancomycin level seems to have been drawn after the dose was hung causing the high result. Re-checking Vanc level and creatinine this am. Initialized on 08/20/18 07:17 - END OF NOTE 08/19/18 16:30 Pharmacy Note by Prem Marina Creatinine 1.51 today. Checked Vanc level - 24.82. Will hold morning dose and decrease to 1.25gm IV q12h. Will repeat vanc level tonight and re-check creatinine in AM. Initialized on 08/19/18 16:30 - END OF NOTE 08/19/18 12:55 (created 08/19/18 13:57) Case Management Note by Mariah King VISITED WITH PT AND REVIEWED DISCHARGE PLAN. DISCUSSED HOME WITH [facility] VS REHAB STAY FOR CONTINUED WOUND CARE. DID DISCUSS THAT [facility] COULD NOT DO DAILY DRESSING CHANGES. PT REPORTS THAT HE WANTS TO DO WHATEVER HE NEEDS TO FOR HIS WOUND TO HEAL. REPORTS THAT HE IS WILLING TO GO TO [facility] FOR [facility]HAB STAY IF NEEDED. REPORTS THAT IF HE DOES GO TO [facility] HIS CHOICE WOULD BE [facility]. PT WANTS TO DISCUSS WITH DR. PERKINS. WILL CONTINUE TO FOLLOW AND ASSESS FOR ALL DC NEEDS. Initialized on 08/19/18 13:57 - END OF NOTE Assessment/Plan (1) Abscess, perineum Current Visit: Yes Status: Acute Assessment & Plan: doing well s/p wide incision and drainage. has staph on culture, continue vanc will d/c zosyn based on sensitivity. will likely require 14 days of vanc, currently on day 5 Code(s): L02.215 - CUTANEOUS ABSCESS OF PERINEUM (2) Cellulitis Current Visit: Yes Status: Acute Code(s): L03.90 - CELLULITIS, UNSPECIFIED (3) Diabetes mellitus Current Visit: Yes Status: Chronic Qualifiers: Diabetes mellitus type: type 2 Diabetes mellitus [facility] insulin use: without long term care pharmacist use Diabetes mellitus complication status: without complication Qualified Code(s): E11.9 - Type 2 diabetes mellitus without complications Code(s): E11.9 - TYPE 2 DIABETES MELLITUS WITHOUT COMPLICATIONS (4) Morbid obesity Current Visit: Yes Status: Chronic Code(s): E66.01 - MORBID (SEVERE) OBESITY DUE TO EXCESS CALORIES
[2018-08-20] MEDS: Zestril 10 MG PO SCH (10:12)
[2018-08-20] MEDS: SYNTHROID 112 MCG PO SCH (10:12)
[2018-08-20] MEDS: PATIENT OWN MEDICATION PO SCH (10:13)
[2018-08-20] MEDS: VANCOCIN 1 GM VIAL*** 1.5 GM in Sodium Chloride 0.9% 500 ML 500 ML IV SCH ×2 (10:15→21:29)
[2018-08-20] MEDS: MORPHINE SULFATE 4 MG INJ IV PRN (10:40)
--- NOTE | 2018-08-20 11:59 | XRAY ---
Indication: snf placement. Comparison: December 25, 2015. Portable chest remains clear. Heart is now borderline enlarged. New right arm PICC line with tip in the SVC. Bony thorax intact. Impression: New borderline cardiomegaly and right PICC line. No acute cardiopulmonary abnormalities.
[2018-08-20] MEDS: Lantus Insulin SQ SCH (21:29)
[2018-08-20] MEDS: NovoLOG Insulin SQ PRN (21:30)
[2018-08-21] MEDS: ENOXAPARIN SODIUM SQ SCH (05:42)
[2018-08-21] MEDS: Sodium Chloride 0.9% 10 ML FLUSH Syringe IV SCH ×2 (05:42→23:46)
--- NOTE | 2018-08-21 07:12 | PCM.NOTE ---
Date and Time: 08/21/18 0709 Subjective Assessment: patient doing well, pain is mild. he is tolerating po. no specific problems or concerns at this time Objective Exam General Appearance: no apparent distress, obese Neurologic Exam: alert, oriented x 3 Respiratory Exam: normal breath sounds, lungs clear, No respiratory distress Cardiovascular Exam: regular rate/rhythm, normal heart sounds Gastrointestinal/Abdomen Exam: soft, No tenderness, No mass Extremity Exam: other (large open area to right inguinal/scrotal area. serous drainage present. surrounding erythema and induration resolving) OBJECTIVE DATA Vital Signs: Vital Signs - 24 hr Temp Pulse Resp BP Pulse Ox 08/21/18 04:17 98.3 F 77 18 127/68 97 08/20/18 23:55 98.3 F 80 17 126/67 97 08/20/18 21:00 98.3 F 83 18 140/61 97 08/20/18 17:00 97.8 F 76 18 123/63 97 08/20/18 13:00 98.6 F 76 20 121/73 97 08/20/18 09:00 98.4 F 85 20 131/63 95 Pain Assessment - Last Documented Pain Intensity 2 Pain Scale Used 0-10 Pain Scale Intake and Output: Intake & Output 08/18/18 08/19/18 08/20/18 08/21/18 11:59 11:59 11:59 11:59 Intake Total 6917 2751 2685 2736 Output Total 5750 3225 1000 Balance 1167 -736 8945 2736 Weight 183.5 kg Lab Results: Accuchecks Date 08/20/18 Date 08/20/18 Date 08/20/18 Time 16:30 Time 11:30 Time 07:30 Accucheck Value: 160 Accucheck Value: 99 Accucheck Value: 167 Accucheck Value: 115 Lab Results-Last 24 Hours 08/15/18 08/20/18 08/20/18 Range/Units 06:16 06:30 07:30 Creatinine 1.44 H (0.66-1.25) mg/dL Estimated GFR 56.4 ML/MIN Vancomycin Trough < 5.00 L (10-20) ug/mL Surg PTH Diagnosis See Note H Radiology Exams: Radiology Procedures Category Date Time Status CHEST 1 VIEW (PORTABLE) Routine Exams 08/20/18 10:09 Completed Multi-Disciplinary Progress Notes: Multi-Disciplinary Progress Notes 08/20/18 12:21 Pharmacy Note by DIVING FISHER,PHARM Vancomycin level this morning was <5. Dose was increased to 1.5 grams every 12 hours. Trough will be re-checked tomorrow morning before 10 am dose to assess more accurate reading. Rl Ramsey - Learning Consultant. Initialized on 08/20/18 12:21 - END OF NOTE 08/20/18 07:17 Pharmacy Note by Prem Marina Vancomycin level seems to have been drawn after the dose was hung causing the high result. Re-checking Vanc level and creatinine this am. Initialized on 08/20/18 07:17 - END OF NOTE Assessment/Plan (1) Abscess, perineum Current Visit: Yes Status: Acute Assessment & Plan: pathology c/w lucy's gangrene, culture staph so currently on vanc. plan to continue IV vancomycin x 14 days, has PICC. will need ECF placement for wound care due to body habitus and location and for IV antibiotic therapy. Code(s): L02.215 - CUTANEOUS ABSCESS OF PERINEUM (2) Cellulitis Current Visit: Yes Status: Acute Code(s): L03.90 - CELLULITIS, UNSPECIFIED (3) Diabetes mellitus Current Visit: Yes Status: Chronic Qualifiers: Diabetes mellitus type: type 2 Diabetes mellitus fdc insulin use: without fdc use Diabetes mellitus complication status: without complication Qualified Code(s): E11.9 - Type 2 diabetes mellitus without complications Assessment & Plan: blood sugar control at this time is excellent which should aid in healing/ recovery Code(s): E11.9 - TYPE 2 DIABETES MELLITUS WITHOUT COMPLICATIONS (4) Morbid obesity Current Visit: Yes Status: Chronic Code(s): E66.01 - MORBID (SEVERE) OBESITY DUE TO EXCESS CALORIES
[2018-08-21] MEDS: AMARYL 4 MG PO SCH (08:16)
[2018-08-21] MEDS ORDERED: TROUGH DRUG LEVELS IJ ONE (09:30)
[2018-08-21] MEDS: VANCOCIN 1 GM VIAL*** 1.5 GM in Sodium Chloride 0.9% 500 ML 500 ML IV SCH ×2 (09:43→21:17)
[2018-08-21] MEDS: Zestril 10 MG PO SCH (09:44)
[2018-08-21] MEDS: PATIENT OWN MEDICATION PO SCH (09:44)
[2018-08-21] MEDS: SYNTHROID 112 MCG PO SCH (09:44)
[2018-08-21] MEDS: NovoLOG Insulin SQ PRN (12:28)
[2018-08-21] MEDS: Lantus Insulin SQ SCH (21:17)
[2018-08-22 07:39] LABS: Hematocrit 40.9 % (42-50); Hemoglobin 12.8 gm/dl (12.5-18.0); Mean Cell Volume 87.8 fl (78-100); Mean Corpuscular Hemoglobin 27.5 pg (26-32); Mean Corpuscular Hgb Concent. 31.3 g/dl (32-36); Mean Platelet Volume 10.1 fl (6-9.5); Platelet Count 311 K/mm3 (150-450); Red Blood Count 4.66 M/mm3 (4.1-5.6); Red Cell Distribution Width 14.9 % (11.5-14.0); White Blood Count 9.1 K/mm3 (4.0-10.5)
[2018-08-22 07:51] VITALS: BP 127/75; PULSE 70; O2SAT 95
[2018-08-22 07:55] LABS: ANION GAP 11.3 MEQ/L (5-15); BLOOD UREA NITROGEN 9 mg/dL (9-20); CHLORIDE 105 mmol/L (98-107); Calcium 9.1 mg/dL (8.4-10.2); Carbon Dioxide 30 mmol/L (22-30); Creatinine 1 1.31 mg/dL (0.66-1.25); Glucose 114 mg/dL (74-106); Potassium 4.1 mmol/L (3.5-5.1); SODIUM 142 mmol/L (137-145)
[2018-08-22] MEDS: AMARYL 4 MG PO SCH (08:08)
[2018-08-22 08:14] LABS: BAND 2 % (0.0-2.0); Basophil 1 % (0.0-1.0); Eosinophil 3 % (0.00-3.0); Lymphocytes 32 % (24-44); Monocyte 2 % (0.0-12.0); Neutrophils 60 % (36.-66.)
[2018-08-22] MEDS: ENOXAPARIN SODIUM SQ SCH (08:14)
[2018-08-22 08:15] LABS: Platelet Estimate NORMAL (NORMAL); Total Cells Counted 100
[2018-08-22] MEDS ORDERED: Ventolin Hfa MDI IH PRN (08:15)
[2018-08-22 08:16] LABS: Granulocyte Absolute (ANC) 5.65 (1.4-6.9)
--- NOTE | 2018-08-22 08:19 | PCM.DS ---
Discharge Summary Date of Admission: 08/15/18 00:50 Admitting Physician: SIENNA EPRKINS Consults: Consults on Case 08/15/18 10:58 Consult Surgery ROUTINE Primary Care Provider: SIENNA PERKINS Allergies Allergies No Known Drug Allergies Allergy (Verified 08/14/18 22:15) Hospital Summary - Hospital Course Hospital Course: Pt is a 47 yo morbidly obese diabetic pt of Dr. Perkins who was admitted through the ER with 4d of pain, swelling, and drainage in testicular region. He was started on IV vancomycin and zosyn and was sent for I&D by surgery that evening , thank you. The procedure took an hour and was suspicious for Igor's gangrene. Cultures were taken that later revealed Staphylococcus lugdenensis ( zosyn was d/c'd and he was continued on Vancomycin). The plan is to continue vancomycin for 14d total (pt has a PICC line). Pt was initially only having pain during wound dressing changes, but today he tells me that yesterday's dressing change required no pain meds for him. PT has been dressing the wound. Surgery wanted to have a wound vac on that if possible; PT evaluating for that. During his stay he had the following imaging: -On the day of admission, testicular u/s with right scrotal wall thickening presumed inflammatory/infectious; incompletely visualized large scrotal hyperechogenic lobular mass with color flow (difficult to differentiate scrotal wall versus scrotal sac lipomatous mass); incidental right scrotolith and right epididymal cysts. -U/s guidance and CXR for PICC insertion (nonacute). Pt was febrile during his first 24 hours but has been afebrile since then. His blood sugars were initially high, as he was NPO for surgery and unable to take his Jardiance, glimeperide and metformin. He was started back on Jardiance , glimeperide, and a small dose of Lantus with good results. Currently blood sugars are mostly in the low to mid 100s, with a low of 67 and one high of 160 that required SS coverage. However, pt was asking about his Jardiance and we did decide to d/c that in favor of the metformin today. - Vitals & Intake/Output Vital Signs: Vital Signs Temperature 98.4 F 08/22/18 07:50 Pulse Rate 70 08/22/18 07:50 Respiratory Rate 18 08/22/18 07:50 Blood Pressure 127/75 08/22/18 07:50 O2 Sat by Pulse Oximetry 95 08/22/18 07:50 Intake & Output: Intake & Output 08/19/18 08/20/18 08/21/18 08/22/18 11:59 11:59 11:59 11:59 Intake Total 2754 2685 3576 1080 Output Total 3225 1000 300 Balance -474 0315 3276 1080 Weight 183.5 kg - Lab Result Diagrams: 08/22/18 04:00 08/22/18 05:47 Lab Results-Last 24 Hrs: Accuchecks Date 08/21/18 Date 08/21/18 Time 16:30 Time 11:30 Accucheck Value: 144 Accucheck Value: 110 Accucheck Value: 169 Lab Results-Last 24 Hours 08/21/18 08/22/18 08/22/18 Range/Units 09:30 04:00 05:47 WBC 9.1 (4.0-10.5) K/mm3 RBC 4.66 (4.1-5.6) M/mm3 Hgb 12.8 (12.5-18.0) gm/dl Hct 40.9 L (42-50) % MCV 87.8 (78-100) fl MCH 27.5 (26-32) pg MCHC 31.3 L (32-36) g/dl RDW 14.9 H (11.5-14.0) % Plt Count 311 (150-450) K/mm3 MPV 10.1 H (6-9.5) fl Sodium 142 (137-145) mmol/L Potassium 4.1 (3.5-5.1) mmol/L Chloride 105 (98-107) mmol/L Carbon Dioxide 30 (22-30) mmol/L Anion Gap 11.3 (5-15) MEQ/L BUN 9 (9-20) mg/dL Creatinine 1.31 H (0.66-1.25) mg/dL Estimated GFR > 60.0 ML/MIN Glucose 114 H (74-106) mg/dL Calcium 9.1 (8.4-10.2) mg/dL Vancomycin Trough 18.14 (10-20) ug/mL Micro Results-Entire Visit: Microbiology 08/15/18 19:37 Routine Culture - Final Scrotum - Right 08/14/18 04:41 Wound Culture - Final Scrotum - Right Staphylococcus Lugdunensis 08/14/18 22:47 Blood Culture Gram Stain - Final Blood Not Reportable Blood Culture - Final NO GROWTH 08/14/18 22:47 Blood Culture Gram Stain - Final Blood Not Reportable Blood Culture - Final NO GROWTH Accuchecks Date 08/21/18 Date 08/21/18 Time 16:30 Time 11:30 Accucheck Value: 144 Accucheck Value: 110 Accucheck Value: 169 - Radiology Exams Ordered Rad Exams-Entire Visit: Radiology Procedures Category Date Time Status CHEST 1 VIEW (PORTABLE) Routine Exams 08/20/18 10:09 Completed - Procedures and Test Procedures and Tests throughout Hospitalization: Therapy Orders & Screens 08/17/18 10:31 PT Eval & Treat (MD Order) ROUTINE Reason for Eval:: I&D AND OPEN WOUND TO RIGHT SCROTUM. WANTS WOUND VAC Diagnosis: scrotal abscess Discharge Exam General Appearance: no apparent distress, obese Neurologic Exam: alert, oriented x 3, cooperative Skin Exam: normal color, warm, dry, No rash Ears, Nose, Throat Exam: moist mucous membranes Neck Exam: normal inspection Respiratory Exam: normal breath sounds, lungs clear, wheezing (faint scattered expiratory), No crackles/rales, No rhonchi Cardiovascular Exam: regular rate/rhythm, normal heart sounds, No murmur Gastrointestinal/Abdomen Exam: soft, No tenderness Extremity Exam: No pedal edema, No swelling Male Genitalia Exam: other (R inguinal/perineal area with extensive wound; base is pink,no surrounding erythema, no exudate) Final Diagnosis/Problem List - Final Discharge Diagnosis/Problem (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 on IV vancomycin day#9. To LTCF today; due to pt's habitus and area of infection he would be completely unable to dress this wound. Continue Vancomycin 14d total then I will re-evalaute. Code(s): N49.3 - IGOR GANGRENE (2) Diabetes mellitus Current Visit: Yes Status: Chronic Assessment & Plan: to LTCF on metformin and glimeperide. Code(s): E11.9 - TYPE 2 DIABETES MELLITUS WITHOUT COMPLICATIONS (3) Morbid obesity Current Visit: Yes Status: Chronic Code(s): E66.01 - MORBID (SEVERE) OBESITY DUE TO EXCESS CALORIES - Discharge Disposition: Skilled Care @ [facility] Condition: Good Prescriptions: New Insulin Glargine [Lantus Insulin] 5 unit SQ HS #1 unit Hydrocodone/APAP 5-325 Tab^^^ [[place] 5-325 Tablet^^^] 1 each PO BID PRN #30 tablet MDD 6 PRN Reason: Pain Insulin Aspart [NovoLOG Insulin] 2 unit SQ UD PRN #1 bottle PRN Reason: HYPERGLYCEMIA Continue Metformin HCl 1000 mg [Glucophage 1000 MG] 1,000 mg PO DAILY Furosemide 40 mg [Lasix 40 MG] 40 mg PO DAILY Levothyroxine Sodium 112 Mcg [Synthroid 112 Mcg] 112 mcg PO DAILY Lisinopril [Zestril] 10 mg PO DAILY Glimepiride 4 mg PO DAILY Potassium Chloride 10 Meq Tab* [Klor Con 10 MEQ] 10 meq PO DAILY Pravastatin Sodium 20 mg PO HS Discontinued Empagliflozin [Jardiance] 10 mg PO DAILY Follow up with: SIENNA PERKINS MD [Primary Care Provider] - 1 Week
[2018-08-22] MEDS ORDERED: PROVENTIL COMMON CANISTER IH PRN (08:32)
[2018-08-22] MEDS ORDERED: TROUGH DRUG LEVELS IJ ONE (09:30)
[2018-08-22] MEDS: VANCOCIN 1 GM VIAL*** 1.5 GM in Sodium Chloride 0.9% 500 ML 500 ML IV SCH (09:40)
[2018-08-22] MEDS: SYNTHROID 112 MCG PO SCH (09:55)
[2018-08-22] MEDS: Zestril 10 MG PO SCH (09:55)
[2018-08-22] MEDS ORDERED: Glucophage XR 500 MG PO SCH (10:00)
== END 2018-08-22 12:20 | DRG 727 ==
LOC: ED 20:55 → MED SURG 08-15 00:50
PROVIDERS: ADMIT Family Medicine; ATTEND Family Medicine
PROC: 0V950ZX Drainage of Scrotum, Open Approach, Diagnostic (ICD-10-PCS; principal; 2018-08-15)
DX: N49.3 Fournier gangrene (principal); M72.6 Necrotizing fasciitis; L03.315 Cellulitis of perineum; L02.215 Cutaneous abscess of perineum; E03.9 Hypothyroidism, unspecified; E11.9 Type 2 diabetes mellitus without complications; I10 Essential (primary) hypertension; E66.01 Morbid (severe) obesity due to excess calories; Z79.899 Other long term (current) drug therapy; F17.200 Nicotine dependence, unspecified, uncomplicated
CPT/HCPCS: 36000; 36415; 36569; 71045; 76870; 76937; 77001; 80048; 80053; 80202; 81001; 82565; 82962; 83036; 83605; 84134; 85025; 85610; 85730; 87040; 87070; 87077; 87186; 88305; 96360; 96365; 96367; 99285; C1769; J0330; J1642; J1650; J2250; J2270; J2370; J2405; J2543; J2704; J3010; J3370; A9270-GY

== ENCOUNTER 2023-09-04 23:05 | Emergency (ER) | payer OTHER ==
[2023-09-04 23:42] VITALS: TEMP 98.8
[2023-09-05] MEDS ORDERED: Zofran 4 MG/2 ML VIAL ONE (00:07)
[2023-09-05] MEDS ORDERED: MORPHINE SULFATE 4 MG INJ ONE (00:07)
[2023-09-05] MEDS: Zofran 4 MG/2 ML VIAL IV ONE (00:12)
[2023-09-05] MEDS: MORPHINE SULFATE 4 MG INJ IV ONE (00:12)
[2023-09-05 00:21] LABS: Absolute Neutrophil Ct (ANC) 7.67 x10^3/uL (1.4-6.9); BASOPHIL % 0.5 % (0.0-0.4); Basophil (Absolute #) 0.06 x10^3/uL (0-0.4); Eosinophil % 1.3 % (0.00-5.0); Eosinophil (Absolute #) 0.14 x10^3/uL (0-0.5); Hematocrit 44.9 % (42-50); Hemoglobin 15.2 g/dL (12.5-18.0); IMMATURE GRAN # 0.05 x10^3u/L (0.00-0.03); IMMATURE GRAN % 0.5 % (0.00-0.4); Lymphocyte (Absolute #) 2.46 x10^3/uL (1.0-4.6); Lymphocytes % 22.5 % (24.0-44.0); Mean Corpuscular Hemoglobin 29.1 pg (26-32); Mean Corpuscular Hgb Concent. 33.9 g/dL (32-36); Mean Platelet Volume 10.7 fL (7.5-11.0); Monocyte (Absolute #) 0.57 x10^3/uL (0.0-1.3); Monocytes % 5.2 % (0.0-12.0); Platelet Count 232 x10^3/uL (150-450); Red Blood Count 5.22 x10^6/uL (4.1-5.6); Red Cell Distribution Width 13.3 % (11.5-14.0)
--- NOTE | 2023-09-05 00:25 | ERPHSYRPT ---
- History of Present Illness Time Seen by Provider: 09/04/23 23:50 Historian: patient Exam Limitations: no limitations Patient Subjective Stated Complaint: epigastric pain and nausea since yesterday Triage Nursing Assessment: pt ambulatory to bed by self with steady gait, pt alert and oriented x3, skin pwd, pt c/o epigastric pain and nausea since yesterday, pt denies any vomiting or diarrhea, pain is worse after eating, last oral intake was 1929, last BM was 2129 Physician History: 52-year-old male BMI of 57.8 presents to our ED with a 1 day history of epigastric pain and nausea. Symptoms started yesterday. Patient states symptoms worsened today after supper. No trauma no fever. Patient is nauseous no vomiting or diarrhea no rash. Patient denies history of the same. No associated chest pain or shortness of breath. No sick contacts. Patient otherwise feels well. He voices no other complaints or concerns at this time. Portions of this note were created with voice recognition technology. There may be grammatical, spelling, punctuation or sound alike errors Timing/Duration: yesterday Activities at Onset: none Quality: aching Abdominal Pain Onset Location: epigastric Pain Radiation: no radiation Severity of Pain-Max: moderate Severity of Pain-Current: mild Modifying Factors: Improves With: palpation Associated Symptoms: nausea Previous symptoms: no prior history Allergies/Adverse Reactions: No Known Drug Allergies Allergy (Verified 09/04/23 23:35) Home Medications: Furosemide 40 mg [Lasix 40 MG] 40 mg PO DAILY 11/07/11 [History] Levothyroxine Sodium 112 Mcg [Synthroid 112 Mcg] 112 mcg PO DAILY 11/07/11 [History] Metformin HCl 1000 mg [Glucophage 1000 MG] 1,000 mg PO DAILY 11/07/11 [History] Glimepiride 4 mg PO DAILY 06/19/14 [History] Lisinopril [Zestril] 10 mg PO DAILY 06/19/14 [History] Potassium Chloride Tab* [Klor Con] 10 meq PO DAILY 06/19/14 [History] Pravastatin Sodium 20 mg PO HS 06/19/14 [History] Dulaglutide [Trulicity] 0.5 ml SQ WEEKLY 09/04/23 [History] Hx Tetanus, Diphtheria Vaccination/Date Given: No Hx Influenza Vaccination/Date Given: No Hx Pneumococcal Vaccination/Date Given: No Immunizations Up to Date: No Travel Risk - International Travel Have you traveled outside of the country in past 3 weeks: No - Emerging Infectious Disease Are you exhibiting symptoms associated with any current EIDs: Yes Symptoms: Abdominal Pain - Review of Systems Constitutional: No Symptoms, No Fever, No Chills Eyes: No Symptoms Ears, Nose, & Throat: No Symptoms Respiratory: No Symptoms, No Cough, No Dyspnea Cardiac: No Symptoms, No Chest Pain, No Edema, No Syncope Abdominal/Gastrointestinal: No Symptoms, No Abdominal Pain, No Nausea, No Vomiting, No Diarrhea Genitourinary Symptoms: No Symptoms, No Dysuria Musculoskeletal: No Symptoms, No Back Pain, No Neck Pain Skin: No Symptoms, No Rash Neurological: No Symptoms, No Dizziness, No Focal Weakness, No Sensory Changes Psychological: No Symptoms Endocrine: No Symptoms Hematologic/Lymphatic: No Symptoms Immunological/Allergic: No Symptoms All Other Systems: Reviewed and Negative - Past Medical History Pertinent Past Medical History: Yes Neurological History: No Pertinent History ENT History: No Pertinent History Cardiac History: Hypertension Respiratory History: No Pertinent History Endocrine Medical History: Diabetes Type II Musculoskeletal History: Osteoarthritis GI Medical History: No Pertinent History History: No Pertinent History Psycho-Social History: No Pertinent History Male Reproductive Disorders: No Pertinent History Other Medical History: PATIENT WAS REFERRED TO DR. LU BY DR. PERKINS - Past Surgical History Past Surgical History: Yes Neuro Surgical History: No Pertinent History Cardiac: No Pertinent History Respiratory: No Pertinent History Gastrointestinal: Appendectomy, Cholecystectomy, Hernia Repair Genitourinary: No Pertinent History Musculoskeletal: Orthopedic Surgery Male Surgical History: No Pertinent History Other Surgical History: L wrist - Social History Smoking Status: Current every day smoker How long have you smoked: 5 Exposure to second hand smoke: Yes Drug Use: none Patient Lives Alone: No - Nursing Vital Signs Nursing Vital Signs: Initial Vital Signs Temperature 98.8 F 09/04/23 23:36 Pulse Rate 103 H 09/04/23 23:36 Respiratory Rate 18 09/04/23 23:36 Blood Pressure 122/98 09/04/23 23:36 O2 Sat by Pulse Oximetry 98 09/04/23 23:36 Pain Scale Pain Intensity 1 - Physical Exam General Appearance: no apparent distress, alert Eye Exam: PERRL/EOMI, eyes nml inspection Ears, Nose, Throat Exam: normal ENT inspection, pharynx normal, moist mucous membranes Neck Exam: normal inspection, non-tender, supple, full range of motion Respiratory Exam: normal breath sounds, lungs clear, airway intact, No respiratory distress Cardiovascular Exam: regular rate/rhythm, normal heart sounds Gastrointestinal/Abdomen Exam: soft, other (Epigastric tenderness to palpation. Overlying soft tissue intact. No signs of trauma. Negative: Negative Palomares Pavon sign), No tenderness, No mass Back Exam: normal inspection, normal range of motion, No CVA tenderness, No vertebral tenderness Extremity Exam: normal inspection, normal range of motion, pelvis stable Neurologic Exam: alert, oriented x 3, cooperative, sensation nml, No motor deficits Skin Exam: normal color, warm, dry Lymphatic Exam: No adenopathy SpO2 Interpretation: normal SpO2: 97 O2 Delivery: Room Air - Course Nursing assessment & vital signs reviewed: Yes - CT Exams Abdomen/Pelvis CT Interpretation: Tele-radiologist Report (Plain CT abdomen pelvis. Mild h epatomegaly with fatty infiltration, small nonobstructive 2 mm calculus of the inferior calyx of the left kidney postcholecystectomy and post appendectomy) Ordered Tests: Active Orders 24 hr Category Date Time Status IV Insertion STAT Care 09/04/23 23:58 Active ABDOMEN AND PELVIS W/0 CONTRAS [CT] Stat Exams 09/04/23 23:58 Completed TROPONIN Q4H Lab 09/05/23 02:13 Received TROPONIN Q4H Lab 09/05/23 07:58 Ordered UA W/RFX UR CULTURE Stat Lab 09/05/23 00:55 Completed Medication Summary Discontinued Medications Generic Name Dose Route Start Last Admin Trade Name Niesha PRN Reason Stop Dose Admin Morphine Sulfate 4 mg 09/04/23 23:58 09/05/23 00:12 Morphine Sulfate 4 Mg/Ml Injection IV 09/04/23 23:59 4 mg STAT ONE Administration Morphine Sulfate Confirm 09/05/23 00:07 Morphine Sulfate 4 Mg/Ml Injection Administered 09/05/23 00:08 Dose 4 mg .ROUTE .[facility]-MED ONE Ondansetron HCl 4 mg 09/04/23 23:58 09/05/23 00:12 Ondansetron Hcl 4 Mg/2 Ml Vial IV 09/04/23 23:59 4 mg STAT ONE Administration Ondansetron HCl Confirm 09/05/23 00:07 Ondansetron Hcl 4 Mg/2 Ml Vial Administered 09/05/23 00:08 Dose 4 mg .ROUTE .[facility]-MED ONE Lab/Rad Data: Laboratory Result Diagrams 09/04/23 00:06 09/04/23 00:06 Laboratory Results 09/05/23 09/04/23 09/04/23 Range/Units 00:55 00:06 00:06 WBC 11.0 H (4.0-10.5) x10^3/uL RBC 5.22 (4.1-5.6) x10^6/uL Hgb 15.2 (12.5-18.0) g/dL Hct 44.9 (42-50) % MCV 86.0 (78-100) fL MCH 29.1 (26-32) pg MCHC 33.9 (32-36) g/dL RDW 13.3 (11.5-14.0) % Plt Count 232 (150-450) x10^3/uL MPV 10.7 (7.5-11.0) fL Gran % 70.0 H (36.0-66.0) % Immature Gran % (Auto) 0.5 H (0.00-0.4) % Nucleat RBC Rel Count 0.0 (0.00-0.1) % Eos # (Auto) 0.14 (0-0.5) x10^3/uL Immature Gran # (Auto) 0.05 H (0.00-0.03) x10^3u/L Absolute Lymphs (auto) 2.46 (1.0-4.6) x10^3/uL Absolute Monos (auto) 0.57 (0.0-1.3) x10^3/uL Absolute Nucleated RBC 0.00 (0.00-0.01) x10^3u/L Lymphocytes % 22.5 L (24.0-44.0) % Monocytes % 5.2 (0.0-12.0) % Eosinophils % 1.3 (0.00-5.0) % Basophils % 0.5 (0.0-0.4) % Absolute Granulocytes 7.67 H (1.4-6.9) x10^3/uL Basophils # 0.06 (0-0.4) x10^3/uL Sodium 134 L (135-145) mmol/L Potassium 4.0 (3.5-5.1) mmol/L Chloride 103 (98-107) mmol/L Carbon Dioxide 23 (22-30) mmol/L Anion Gap 11.4 (5-15) MEQ/L BUN 11 (9-20) mg/dL Creatinine 1.26 H (0.66-1.25) mg/dL Estimated GFR 69.5 ML/MIN Glucose 220 H (74-106) mg/dL Calcium 9.5 (8.4-10.2) mg/dL Total Bilirubin 0.60 (0.2-1.3) mg/dL AST 28 (17-59) U/L ALT 35 (0-50) U/L Alkaline Phosphatase 77 (38-126) U/L Troponin I < 0.012 (0.000-0.033) ng/mL Serum Total Protein 7.3 (6.3-8.2) g/dL Albumin 3.8 (3.5-5.0) g/dL Lipase 196 (23-300) U/L Urine Color Yellow (Yellow) Urine Appearance Clear (Clear) Urine pH 6.0 (4.6-8.0) Ur Specific [place] <=1.005 (1.005-1.030) Urine Protein Negative (Negative) Urine Glucose (UA) Negative (Negative) mg/dL Urine Ketones Negative (Negative) Urine Blood Negative (Negative) Urine Nitrite Negative (Negative) Urine Bilirubin Negative (Negative) Urine Urobilinogen 0.2 (0.2) mg/dL Ur Leukocyte Esterase Negative (Negative) U Hyaline Cast (Auto) NONE SEEN (0-2) /LPF Urine Microscopic RBC 0-2 (0-5) /HPF Urine Microscopic WBC 0-2 (0-5) /HPF Ur Epithelial Cells None Seen (None Seen) /HPF Urine Bacteria None Seen (None Seen) /HPF Urine Culture Reflexed NO (NO) - Progress Progress: improved Progress Note: 52-year-old male presents to our ED for evaluation of nausea and epigastric pain. Patient reassessed. Nausea and pain resolved. Patient currently asymptomatic. Patient requesting discharge. Laboratory workup essentially nonremarkable. Troponin negative x 2. Vital stable. Patient's mother at bedside. They voiced no other complaints or concerns at this time. Portions of this note were created with voice recognition technology. There may be grammatical, spelling, punctuation or sound alike errors Complexity problem addressed is moderate acute complicated No critical care time Complexity of data reviewed and analyzed is moderate. Test ordered test reviewed results analyzed and correlated clinically with history and physical exam. Risk of complication and or risk of morbidity/mortality patient management is moderate. A prescription for Pepcid forwarded to patient's pharmacy. Vital stable. Time spent to discharge patient is approximately 20 minutes. Plan of care established for shared decision making. No social determinants of health present impede follow-up. Portions of this note were created with voice recognition technology. There may be grammatical, spelling, punctuation or sound alike errors 09/05/23 02:54 Counseled pt/family regarding: lab results, diagnosis, need for follow-up, rad results - Departure Departure Disposition: Home Clinical Impression: Epigastric pain, Fatty liver, Hepatomegaly, Nephrolithiasis, Nausea Condition: Stable Critical Care Time: No Referrals: SIENNA PERKINS MD [Primary Care Provider] - Follow up/PCP as directed Additional Instructions: Discharge/Care Plan JW ANDINOABAD MCALLISTER was seen on 09/05/23 in the Emergency Room. The patient was counseled regarding Diagnosis,Lab results, Imaging studies, need for follow up and when to return to the Emergency Room. Prescriptions given: Discharge Note I have spoken with the patient and/or caregivers. I have explained the patient's condition, diagnosis and treatment plan based on the information available to me at this time. I have answered the patient's and/or caregiver's questions and addressed any concerns. The patient and/or caregivers have as good understanding of the patient's diagnosis, condition and treatment plan as can be expected at this point. The vital signs have been stable. The patient's condition is stable and appropriate for discharge from the emergency department. The patient will pursue further outpatient evaluation with the primary care physician or other designated or consulting physician as outlined in the discharge instructions. The patient and/or caregivers are agreeable to this plan of care and follow-up instructions have been explained in detail. The patient and/or caregivers have received these instruction. The patient/and or caregivers are aware that any significant change in condition or worsening of symptoms should prompt an immediate return to this or the closest emergency department or call 911. Prescriptions: PANTOPRAZOLE 40 mg Tablet [Protonix 40MG Tablet] 40 mg PO DAILY 14 Days #14 tab
[2023-09-05 00:37] LABS: ALBUMIN 3.8 g/dL (3.5-5.0); ALKALINE PHOSPHATASE 77 U/L (38-126); ANION GAP 11.4 MEQ/L (5-15); BLOOD UREA NITROGEN 11 mg/dL (9-20); CHLORIDE 103 mmol/L (98-107); Calcium 9.5 mg/dL (8.4-10.2); Carbon Dioxide 23 mmol/L (22-30); Creatinine 1 1.26 mg/dL (0.66-1.25); EST GLOMERULAR FILTRATION RATE 69.5 ML/MIN; Glucose 220 mg/dL (74-106); LIPASE 196 U/L (23-300); SGOT/AST 28 U/L (17-59); SGPT/ALT 35 U/L (0-50); SODIUM 134 mmol/L (135-145); TROPONIN < 0.012 ng/mL (0.000-0.033); Total Protein 7.3 g/dL (6.3-8.2)
--- NOTE | 2023-09-05 00:53 | XRAY ---
CLINICAL HISTORY: pain COMPARISON: None. TECHNIQUE: CT scan of the abdomen and pelvis was performed without IV contrast. Coronal and sagittal reconstructive images were also obtained. FINDINGS: Sections of the lower thorax show no significant abnormality. Abdomen: The liver is mildly enlarged in size, measuring 17.5 cm craniocaudally and shows fatty infiltration. Faint small calcific densities are seen along the capsular margin of posterior aspect of level, possibly old granulomas. The intrahepatic biliary radicals and the bile ducts are normal. The gallbladder is surgically removed. The spleen, pancreas, and adrenal glands are unremarkable. The kidneys are normal in size and shape. A small 2 mm calculus is seen in inferior calyx of left kidney, no hydronephrosis noted.No calculi or hydronephrosis on right side. The ascending colon, the transverse colon, the descending colon, visualized small bowel loops are unremarkable. Post appendicectomy status. There is no evidence of significant enlargement of the mesenteric or retroperitoneal lymph nodes. Divarication of Recti with bulging of bilateral lateral abdominal navarro noted. Pelvis: The urinary bladder is unremarkable. The rectosigmoid colon is unremarkable. The prostate appears unremarkable. No evidence of pelvic lymphadenopathy. The lumbar spine shows degenerative changes. IMPRESSION: 1. No significant acute abnormality is detected in CT abdomen and pelvis, within the limitations of plain study 2. Mild hepatomegaly with fatty infiltration 3. Small non-obstructive 2 mm calculus in the inferior calyx of the left kidney. 4. Post cholecystectomy and appendicectomy status. Electronically Signed by: Joao Worthy MD. (09/05/2023 00:48:48 EDT)
[2023-09-05 01:04] LABS: Appearance Clear (Clear); Bacteria None Seen /HPF (None Seen); Bilirubin Negative (Negative); Blood Negative (Negative); Epithelial Cells None Seen /HPF (None Seen); Glucose, Urine Negative (Negative); Hyaline Casts NONE SEEN /LPF (0-2); Ketones Negative (Negative); Leukocyte Esterase Negative (Negative); Nitrite Negative (Negative); Protein,Urine Dip Negative (Negative); RBC 0-2 /HPF (0-5); Specific Gravity <=1.005 (1.005-1.030); Urobilinogen 0.2 mg/dL (0.2); WBC 0-2 /HPF (0-5)
[2023-09-05 01:06] LABS: ADD URINE CULTURE? NO (NO)
[2023-09-05 03:05] VITALS: BP 104/71; PULSE 95; RESP 21; O2SAT 96
[2023-09-05] MEDS: PROTONIX 40 MG IV IV ONE (03:18)
== END 2023-09-05 03:27 | disposition home or self-care (01) ==
LOC: ED 23:05
DX: R10.13 Epigastric pain (principal); K76.0 Fatty (change of) liver, not elsewhere classified; R16.0 Hepatomegaly, not elsewhere classified; N20.0 Calculus of kidney; R11.0 Nausea; I10 Essential (primary) hypertension; E11.9 Type 2 diabetes mellitus without complications; Z79.84 Long term (current) use of oral hypoglycemic drugs; Z79.85 Long-term (current) use of injectable non-insulin antidiabetic drugs; Z79.899 Other long term (current) drug therapy; Z72.0 Tobacco use
CPT/HCPCS: 36000; 36415; 74176; 80053; 81001; 83690; 84484; 85025; 96374; 96375; 99284; J2270; J2405